=== PATIENT | female | born 1970 | race Caucasian/White ===

== ENCOUNTER 2020-02-17 10:34 | Outpatient (CLI) | payer BC, SELFPAY ==
[2020-02-17 11:21] LABS: Alanine Aminotransferase 40 U/L (4-35); Albumin Level 4.5 g/dL (3.5-5.1); Alkaline Phosphatase 112 U/L (38-126); Aspartate Amino Transferase 36 U/L (14-36); Bilirubin,Total 0.4 mg/dL (0.2-1.3); Blood Urea Nitrogen 19 mg/dL (7-17); Calcium 9.2 mg/dL (8.4-10.2); Carbon Dioxide 26 mmol/L (22-30); Chloride 100 mmol/L (98-107); Cholesterol 225 mg/dL (0-200); Estimated Glomerular Filt Rate 58; Glucose 144 mg/dL (65-105); HDL Direct 37 mg/dL; Potassium 3.9 mmol/L (3.4-5.0); Sodium 138 mmol/L (137-145); Triglycerides 285 mg/dL (<150)
[2020-02-17 12:09] LABS: LDL Cholesterol Direct 130 mg/dL
== END 2020-02-17 10:35 | disposition home or self-care (01) ==
PROVIDERS: PCP Family Medicine; Visit Provider Physician Assistant
DX: R94.5 Abnormal results of liver function studies (principal); R73.01 Impaired fasting glucose; E78.2 Mixed hyperlipidemia
CPT/HCPCS: 36415; 80053; 80061; 83036

== ENCOUNTER 2020-02-22 15:12 | Outpatient (CLI) | payer BC, SELFPAY ==
--- NOTE | ~2020-02-22 | US_ITS ---
EXAMINATION: US venous doppler LE EXAM DATE: 02/22/2020 15:46 INDICATION: Left leg pain and swelling. TECHNIQUE: Multiple grayscale, color flow and Doppler images of the lower extremity deep venous syste ms bilaterally were obtained and reviewed. There is no prior study for comparison. FINDINGS: Right side: The right common femoral, femoral and profunda veins demonstrate normal color flow, respi ratory variation, augmentation and compressibility. Compressibility, color flow confirmed within the right popliteal, posterior tibial, peroneal, and greater saphenous veins. Left side: The left common femoral, femoral and profunda veins demonstrate normal color flow, respira tory variation, augmentation and compressibility. Compressibility, color flow confirmed within the l eft popliteal, posterior tibial, peroneal, and greater saphenous veins. IMPRESSION: 1. No lower extremity deep venous thrombosis bilaterally. Reviewed, dictated and finalized at location A.
== END 2020-02-22 15:13 | disposition home or self-care (01) ==
PROVIDERS: PCP Family Medicine; Visit Provider Physician Assistant
DX: M79.662 Pain in left lower leg (principal); M79.89 Other specified soft tissue disorders
CPT/HCPCS: 93970

== ENCOUNTER 2020-04-08 19:18 | Emergency (ER) | payer OTHER, BC, SELFPAY ==
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
[2020-04-08 19:25] VITALS: BP 137/78; PULSE 82; RESP 18; TEMP 35.9; O2SAT 100
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
[2020-04-08] MEDS: IBUPROFEN 600 MG TABLET PO (21:54)
[2020-04-08 21:56] VITALS: BP 140/70; PULSE 75; RESP 18; O2SAT 98
== END 2020-04-08 21:57 | disposition home or self-care (01) ==
PROVIDERS: Emergency Provider Emergency Medicine; PCP Family Medicine
DX: S16.1XXA Strain of muscle, fascia and tendon at neck level, initial encounter (principal); R51 Headache; G89.29 Other chronic pain; M54.5 Low back pain; M47.812 Spondylosis without myelopathy or radiculopathy, cervical region; M47.816 Spondylosis without myelopathy or radiculopathy, lumbar region; M47.814 Spondylosis without myelopathy or radiculopathy, thoracic region; V49.40XA Driver injured in collision with unspecified motor vehicles in traffic accident, initial encounter
CPT/HCPCS: 70450; 72072; 72100; 72125; 99284; A9270; L0140

== ENCOUNTER 2020-12-06 15:01 | Outpatient (CLI) | payer SELFPAY ==
--- NOTE | ~2020-12-06 | MM_ITS ---
EXAMINATION: MM screening [facility] BI w daphne HISTORY: Screening mammogram TECHNIQUE: Craniocaudal and mediolateral oblique 3-D tomosynthesis images were obtained and synthetic 2-D images were generated. CAD analysis was submitted and interpreted. COMPARISON: 09/02/2019, 06/27/2018, 04/10/2010 BREAST PARENCHYMAL COMPOSITION: The breasts are almost entirely fatty. FINDINGS: There is no evidence of suspicious mass, calcification, or architectural distortion to sugg est malignancy in either breast. There has been no suspicious interval change. IMPRESSION: 1. No mammographic evidence of malignancy. 2. Recommend routine screening mammography in one year. BI-RADS Category 1: Negative Reviewed, dictated and finalized at location A. OR [employer]
== END 2020-12-06 15:02 | disposition home or self-care (01) ==
LOC: ANHIMG 15:04
PROVIDERS: PCP Family Medicine; Visit Provider Family Medicine
DX: Z12.31 Encounter for screening mammogram for malignant neoplasm of breast (principal)
CPT/HCPCS: 77063; 77067

== ENCOUNTER 2021-03-23 11:04 | Outpatient (CLI) | payer BC, SELFPAY ==
--- NOTE | ~2021-03-23 | MMUS_ITS ---
EXAMINATION: MM diagnostic [facility] LT w daphne, US breast LT limited HISTORY: At 3:00 area TECHNIQUE: ML, MLO and cc full field and spot MLO and ML 3-D tomosynthesis images of the left breast were performed and synthetic 2-D images were generated. Lateral craniocaudal view. CAD analysis was s ubmitted and interpreted. High resolution limited left breast ultrasound was performed. COMPARISON: 12/06/2020, 09/02/2019, 06/27/2018 bilateral digital screening mammogram examinations BREAST PARENCHYMAL COMPOSITION: The breasts are almost entirely fatty. FINDINGS: MAMMOGRAPHIC FINDINGS: No suspicious mass or architectural distortion, malignant calcification, skin thickening or retractio n is detected. ULTRASOUND: There is no evidence of focal abnormal solid or cystic lesion or suspicious shadowing. IMPRESSION: 1. No mammographic evidence of malignancy 2. Routine mammographic screening is recommended. BI-RADS Category 1: Negative Reviewed, dictated and finalized at location A. IMPRESSION: 1. No mammographic evidence of malignancy 2. Routine mammographic screening is recommended. BI-RADS Category 1: Negative
== END 2021-03-23 11:05 | disposition home or self-care (01) ==
LOC: ANHIMG 11:05
PROVIDERS: PCP Family Medicine; Visit Provider Obstetrics & Gynecology
DX: R92.8 Other abnormal and inconclusive findings on diagnostic imaging of breast (principal)
CPT/HCPCS: 76642; 77061; 77065; G0279

== ENCOUNTER 2021-04-09 12:52 | Outpatient (CLI) | payer BC, SELFPAY ==
--- NOTE | ~2021-04-09 | DEXA_ITS ---
Bone Density Report Name: Laisha Marquez Age: 50 Sex: Female Ethnicity: White Date of : 1970 Indication: postmenopausal; hysterectomy; Referring Provider: LILIA CLAIRE Study: Bone densitometry was performed. Exam Date: April 09, 2021 Accession number: [id number] Bone Density: Region BMD T-score Z-score Classification AP Spine (L1-L4) 1.001 -0.4 0.5 Normal Femoral Neck (Left) 0.762 -0.8 0.1 Normal Total Hip (Left) 0.815 -1.0 -0.5 Normal Total Hip Bilateral Avg 0.825 -0.9 -0.4 Normal Femoral Neck (Right) 0.785 -0.6 0.3 Normal Total Hip (Right) 0.835 -0.9 -0.3 Normal World Health Organization criteria for BMD impression classify patients as: Normal (T-score at or above -1.0), Osteopenia (T-score between -1.0 and -2.5), or Osteoporosis (T-score at or below -2.5). 10-year Fracture Risk: FRAX not reported because: All T-scores for Spine Total, Hip Total, Femoral Neck at or above -1.0 Clinical Information Provided by Patient: Has used the following medications: HRT (i.e. estrogen/hormone therapy) Has the following medical conditions: Hysterectomy Patient maximum height was 64.5 Menopause Age: 34 No regular weight bearing exercise Drinks caffeinated beverages Onset of menses at age 10 Number of children 2 Impression: The patient has normal bone mass. Discussion: BONE DENSITY IS ABOVE THE MINIMUM DESIRABLE LEVEL AT ALL SKELETAL SITES TESTED. This patient?s bone mineral density is above the minimum desirable level (T-score -1.0 or better) at all sites measured. The patient should follow a healthful lifestyle (good nutrition with adequate calcium and vitamin D, and appropriate weight-bearing exercise). Follow-Up: Consider repeating this study in 5 years or sooner if there is some new clinical indication. Reported by: [facility] on 04/09/2021 3:17:00 PM. Reviewed, dictated and finalized at location AAle SCHAFFER
== END 2021-04-09 12:53 | disposition home or self-care (01) ==
LOC: ANHIMG 12:54
PROVIDERS: PCP Family Medicine; Visit Provider Obstetrics & Gynecology
DX: Z78.0 Asymptomatic menopausal state (principal)
CPT/HCPCS: 77080

== ENCOUNTER 2021-05-02 01:01 | Day surgery (SDC) | payer BC, SELFPAY ==
[2021-04-23 11:39] VITALS: BMI 32.8
[2021-05-02 06:42] VITALS: BP 132/66; PULSE 95; RESP 18; TEMP 36.2; O2SAT 95; BMI 33.2
[2021-05-02] MEDS: LACTATED RINGERS 1,000 ML 150 ML IV CONT (07:00)
--- NOTE | 2021-05-02 07:01 | WPDGICN ---
Assessment and Plan Assessment and plan (1) Gastroesophageal reflux disease: Code(s): K21.9 - Gastro-esophageal reflux disease without esophagitis Status: Acute Assessment and Plan: Patient has a history of chronic GE reflux disease a history of erosive esophagitis on previous endoscopic exam. Because of recurrent pain and discomfort follow-up EGD is planned today. Anticipate long-term use proton pump inhibitor. Strict anti-reflux measures are encourage. Further recommendations will be given after endoscopy. (2) Encounter for screening colonoscopy: Code(s): Z12.11 - Encounter for screening for malignant neoplasm of colon Status: Acute Assessment and Plan: Patient presents for screening colonoscopy. She appears to be at average risk for colon polyps. Further recommendations will be given after endoscopy. GI Consult Note Consult date/time: 05/02/21 07:01 HPI: Laisha Marquez is a 50 year old female Presents for evaluation of GE reflux disease and also for neoplasia screening. Patient states that her current weight appetite bowel movements are normal. She denies abdominal pain. As she is over 50 she desires neoplasia screening. There is no family history of colon cancer. Patient also has a longstanding history of acid reflux disease. She has a history of erosive esophagitis in the past. She currently denies any bleeding or dysphagia. She has had significant heartburn and pain. In the past apparently prescribed proton pump inhibitors these have been did discontinued. Upon being seen in the office within the last 2 months she restarted omeprazole 40 mg p.o. b.i.d. with good response. She is no longer has epigastric or substernal discomfort. She presents today for follow-up examination. Review of Systems Review of Systems: All systems reviewed & are unremarkable except as noted in HPI and below PMFSH Past Medical History Medical History Acid reflux Cervical cancer Depression IBS (irritable bowel syndrome) Miscarriage PTSD (post-traumatic stress disorder) (vaginal after ) Surgical History Surgical History H/O section H/O esophagogastroduodenoscopy H/O hysterectomy with oophorectomy H/O LEEP History of cholecystectomy Family History Family History Father Family history of suicide Mother Family history of primary malignant neoplasm of liver Social History Social History Smoking status: Never smoker Second hand tobacco smoke exposure: No Alcohol intake: former Substance use: former Substance use type: crack/cocaine Other substance usage details: 06/2010 Living arrangements: with family Gender identity (if verbalized by the patient): Female Spiritual care concerns: No Meds Home Medications and Allergies Home Medications Medication Instructions Recorded Confirmed Type bupropion HCl 150 mg tablet,12 hr 150 mg PO DAILY 01/09/21 04/23/21 History sustained-release omeprazole 40 mg capsule,delayed 40 mg PO BID #180 cap 02/28/21 04/23/21 Rx release estradiol 1 mg tablet 1 mg PO DAILY #90 tablet 03/20/21 04/23/21 Rx doxepin 10 mg PO DAILY 04/23/21 04/23/21 History Allergies Allergy/AdvReac Type Severity Reaction Status Date / Time aspirin Allergy Severe Swelling Verified 05/02/21 06:41 of Lip/Tongue/Throat morphine Allergy Severe Dyspnea / Verified 05/02/21 06:41 SOB Penicillins Allergy Severe Difficulty Verified 05/02/21 06:41 Breathing Sulfa (Sulfonamide Allergy Severe Swelling Verified 05/02/21 06:41 Antibiotics) tramadol Allergy Severe Itching Verified 05/02/21 06:41 Bumble Bee Allergy Severe Anaphylactic Uncoded 05/02/21 06:41 Shock
[2021-05-02 07:13] LABS: Glucose Point of Care 106 mg/dl (65-105)
--- NOTE | 2021-05-02 07:51 | WPDANESEPPF ---
Anes - Initial Pre Proc Eval Procedure: Operation Date: 05/02/21 08:00 Proposed Procedures p Esophagogastroduodenoscopy & Screening Colonoscopy - Antoni Colon MD Date/Time: 05/02/21 07:51 Surgeon: Antoni Colon MD Pre Op Diagnosis: GERD, Neoplasm screening Patient Data Age: 50 Gender: F Height: 1.65 m Weight: 90.5 kg Last Vital Signs Temp 97.2 F L 05/02/21 06:42 Pulse 95 05/02/21 06:42 Resp 18 05/02/21 06:42 BP 132/66 05/02/21 06:42 Pulse Ox 95 05/02/21 06:42 Allergies Allergy/AdvReac Type Severity Reaction Status Date / Time aspirin Allergy Severe Swelling Verified 05/02/21 06:41 of Lip/Tongue/Throat morphine Allergy Severe Dyspnea / Verified 05/02/21 06:41 SOB Penicillins Allergy Severe Difficulty Verified 05/02/21 06:41 Breathing Sulfa (Sulfonamide Allergy Severe Swelling Verified 05/02/21 06:41 Antibiotics) tramadol Allergy Severe Itching Verified 05/02/21 06:41 Bumble Bee Allergy Severe Anaphylactic Uncoded 05/02/21 06:41 Shock Home Medications Medication Instructions Recorded Confirmed Type bupropion HCl 150 mg tablet,12 hr 150 mg PO DAILY 01/09/21 04/23/21 History sustained-release omeprazole 40 mg capsule,delayed 40 mg PO BID #180 cap 02/28/21 04/23/21 Rx release estradiol 1 mg tablet 1 mg PO DAILY #90 tablet 03/20/21 04/23/21 Rx doxepin 10 mg PO DAILY 04/23/21 04/23/21 History Laboratory Tests 05/02/21 06:57 POC Capillary Glucose 106 mg/dl H mg/dl (65-105) Patient hx anesthesia problems: none Family hx anesthesia problems: none PMFSH Past Medical History Medical History Acid reflux Cervical cancer Depression IBS (irritable bowel syndrome) Miscarriage PTSD (post-traumatic stress disorder) (vaginal after ) Surgical History Surgical History H/O section H/O esophagogastroduodenoscopy H/O hysterectomy with oophorectomy H/O LEEP History of cholecystectomy Family History Family History Father Family history of suicide Mother Family history of primary malignant neoplasm of liver Social History Social History Smoking status: Never smoker Second hand tobacco smoke exposure: No Alcohol intake: former Substance use: former Substance use type: crack/cocaine Other substance usage details: 06/2010 Living arrangements: with family Gender identity (if verbalized by the patient): Female Spiritual care concerns: No Anes - Eval Final PreProcedure Day of Procedure 05/02/21 07:51 Patient weight: obese Heart: regular rate and rhythm Lungs: clear to auscultation Airway: Mallampati scale class II Neurological: alert and oriented Last oral intake: >/= 8 hours ASA classification: III Emergent: no Anesthetic plan: proceed Anesthesia type and monitoring: general GIVS and standard monitoring Informed Consent: The patient's anesthetic plan and its attendant risks and benefits were discussed with the patient/family/POA. Questions were solicited and answers provided to the satisfaction of the patient/family/POA.
[2021-05-02] MEDS: BENZOCAINE (*SP) 60 ML SPRAY CAN (HURRICAINE) 1 SPRAY MUCOUS MEM (07:59)
[2021-05-02 08:23] VITALS: BP 105/63; PULSE 77; RESP 15; O2SAT 99
[2021-05-02 08:33] VITALS: BP 110/64; PULSE 72; RESP 16; O2SAT 98
[2021-05-02 08:43] VITALS: BP 112/64; PULSE 74; RESP 18; O2SAT 97
== END 2021-05-02 09:04 | disposition home or self-care (01) ==
PROVIDERS: PCP Family Medicine; Visit Provider Internal Medicine Gastroenterology
PROC: 0DJ08ZZ Inspection of Upper Intestinal Tract, Via Natural or Artificial Opening Endoscopic (ICD-10-PCS; CPT 43235; principal; 2021-05-02 08:00)
DX: Z12.11 Encounter for screening for malignant neoplasm of colon (principal); K64.8 Other hemorrhoids; K57.32 Diverticulitis of large intestine without perforation or abscess without bleeding; K21.00 Gastro-esophageal reflux disease with esophagitis, without bleeding; K31.84 Gastroparesis; K58.9 Irritable bowel syndrome, unspecified; F43.10 Post-traumatic stress disorder, unspecified; Z85.41 Personal history of malignant neoplasm of cervix uteri; E66.9 Obesity, unspecified; Z68.33 Body mass index [BMI] 33.0-33.9, adult; Z79.899 Other long term (current) drug therapy
CPT/HCPCS: 45378; 43235; 82948; J2704; J7120

== ENCOUNTER 2021-07-20 15:01 | Outpatient (CLI) | payer BC, SELFPAY ==
[2021-07-20 15:38] LABS: Basophils Percent Auto 0.2 % (0.2-1.2); Eosinophils Absolute Auto 0.1 K/mm3 (0-0.3); Eosinophils Percent Auto 1.4 % (0-4.4); Hematocrit 38.2 % (37.0-47.0); Immature Granulocyte Absolute 0.02 K/mm3 (0.00-0.031); Immature Granulocyte Percent A 0.2 % (0-0.5); Lymphocytes Absolute Auto 3.02 K/mm3 (0.9-3.2); Lymphocytes Percent Auto 34.8 % (18.3-44.2); Mean Corpuscular HGB Conc 31.4 g/dl (32-36); Mean Corpuscular Volume 85.8 fl (80-100); Mean Platelet Volume 9.2 fl (7.4-10.4); Monocytes Absolute Auto 0.5 K/mm3 (0.1-0.6); Monocytes Percent Auto 5.9 % (2.6-8.5); Neutrophils Percent Auto 57.5 % (45.5-73.1); Platelet Count Result 325 k/mm3 (150-375); Red Blood Count 4.45 M/mm3 (4.2-5.4); Red Cell Distribution Width 14.1 % (11.5-14.5); White Blood Count 8.7 K/mm3 (4.5-10.0)
[2021-07-20 15:40] LABS: Add Urine Microscopic? NO; Appearance Urine Clear (Clear); Bilirubin Urine Negative (Negative); Blood Urine Negative (Negative); Color Urine Yellow (Yellow); Glucose Urine UA Negative (Negative); Ketones Urine Negative (Negative); Leukocyte Esterase Ur Negative LEU/UL (NEGATIVE); Nitrate Urine Negative (Negative); Protein Urine Negative (Negative); Specific Grav Ur 1.018 (1.001-1.035); Urobilinogen Urine Negative mg/dL (<2.0)
[2021-07-20 15:50] LABS: Alanine Aminotransferase 23 U/L (4-35); Albumin Level 4.8 g/dL (3.5-5.1); Alkaline Phosphatase 93 U/L (38-126); Amylase 69 U/L (30-110); Anion Gap 12 mmol/L (8-16); Aspartate Amino Transferase 31 U/L (14-36); Bilirubin,Total 0.4 mg/dL (0.2-1.3); Blood Urea Nitrogen 15 mg/dL (7-17); Calcium 9.2 mg/dL (8.4-10.2); Carbon Dioxide 26 mmol/L (22-30); Chloride 102 mmol/L (98-107); Estimated Glomerular Filt Rate > 60; Glucose 86 mg/dL (65-110); Lipase 159 U/L (23-300); Potassium 3.9 mmol/L (3.4-5.0); Sodium 140 mmol/L (137-145)
[2021-07-20 16:40] LABS: Hemoglobin A1C 5.4 % (<5.7)
== END 2021-07-20 15:02 | disposition home or self-care (01) ==
LOC: ANHLAB 15:03
PROVIDERS: PCP Family Medicine; Visit Provider Physician Assistant
DX: E03.9 Hypothyroidism, unspecified (principal); R10.9 Unspecified abdominal pain; R73.01 Impaired fasting glucose; R79.89 Other specified abnormal findings of blood chemistry; N39.3 Stress incontinence (female) (male)
CPT/HCPCS: 36415; 80053; 81003; 82150; 83036; 83690; 84443; 85025; 87086; 87088

== ENCOUNTER 2021-07-27 13:02 | Outpatient (CLI) | payer BC, SELFPAY ==
--- NOTE | ~2021-07-27 | CT_ITS ---
EXAMINATION: CT abdomen pelvis wo con EXAM DATE: 07/27/2021 13:17 INDICATION: Right upper quadrant pain, symptoms one month. History of cervical cancer. TECHNIQUE: Spiral CT of the abdomen and pelvis was performed without contrast. Axial, coronal and s agittal images of the abdomen and pelvis were reviewed. The dose-length product (DLP) for this exami nation was 713.24 mGy-cm. The exposure was tailored according to patient size (auto mA exposure cont rol), and iterative reconstruction (ASIR) was used as additional dose reduction technique. Comparison is made to prior examination from 11/16/2017. FINDINGS: There is hepatic steatosis without suspicious focal lesion identified. Spleen, adrenal glan ds, pancreas are unremarkable. There are cholecystectomy clips. There is no nephrolithiasis or hydr onephrosis. The uterus is not identified and has likely been surgically resected. The bladder is u nremarkable. There is no retroperitoneal or pelvic lymphadenopathy. There is mild scattered arteri osclerotic disease. The appendix is normal. The stomach and small bowel are unremarkable. There is expected amount of c olonic stool. No free intraperitoneal gas. The heart is normal in size. There are no pericardial or pleural effusions. The lung bases are unremarkable. There are no osteoblastic or osteolytic les ions identified. IMPRESSION: 1. No acute intra-abdominal findings. 2. Hepatic steatosis. 3. Hysterectomy, cholecystectomy Reviewed, dictated and finalized at location A.
== END 2021-07-27 13:03 | disposition home or self-care (01) ==
LOC: ANHIMG 13:04
PROVIDERS: PCP Family Medicine; Visit Provider Physician Assistant
DX: R10.9 Unspecified abdominal pain (principal); K76.0 Fatty (change of) liver, not elsewhere classified; Z90.49 Acquired absence of other specified parts of digestive tract
CPT/HCPCS: 74176

== ENCOUNTER 2021-08-11 11:05 | Emergency (ER) | payer BC, SELFPAY ==
--- NOTE | ~2021-08-11 | CT_ITS ---
EXAMINATION: CTA chest PE protocol DATE: 08/11/2021 12:31 CDT INDICATION: Pleuritic chest pain TECHNIQUE: Computed tomographic angiography (CTA) of the chest was performed with 100 mL Omnipaque-35 0 intravenous contrast. The dose-length product was 401.67 mGy-cm. Maximum intensity projection 3D-re constructions of the aorta and other arteries were constructed by the technologist on a separate work station. COMPARISON: CT dated 09/25/2012. FINDINGS: Study is technically adequate without evidence for pulmonary embolism. No thoracic lymphade nopathy. No evidence for aortic aneurysm or dissection. Heart size normal. No significant pleural or pericardial effusion. There are cholecystectomy clips. Upper abdomen is otherwise unremarkable. Small hiatal hernia. No pneumothorax. No focal airspace consolidation. No endobronchial lesions. No suspic ious pulmonary nodules or masses. Mild thoracic spondylosis. IMPRESSION: 1. No evidence for pulmonary embolism. No acute cardiopulmonary disease. Reviewed, dictated and finalized at location A.
--- NOTE | ~2021-08-11 | XR_ITS ---
EXAMINATION: XR chest 1V portable 08/11/2021 11:30 INDICATION: Pleuritic chest pain PROCEDURE: AP portable chest COMPARISON: Comparison to multiple prior studies sequentially, with oldest reviewed study dated 12/20. FINDINGS: The lungs are clear. The cardiomediastinal silhouette is within normal limits. There are no pleural effusions. There is no pneumothorax suspected. IMPRESSION: 1: NO ACUTE CARDIOPULMONARY DISEASE. Reviewed, dictated and finalized at location A.
--- NOTE | 2021-08-11 11:10 | ECG_ITS ---
Measurements Intervals M[place]oll Rate: 74 P: 32 IL: 146 QRS: -1 QRSD: 110 T: 61 QT: 408 QTc: 455 Interpretive Statements SINUS RHYTHM T WAVE ABNORMALITY IN ANTERIOR LEADS- CONSIDER ISCHEMIA BASELINE ARTIFACT- I, II, III, AVL, AVF, V2, V4 ABNORMAL ECG Electronically Signed On 08-11-2021 17:44:47 CDT by Ronaldo Renee D.O.
[2021-08-11 11:15] VITALS: BP 106/71; PULSE 84; RESP 18; TEMP 36.1; O2SAT 100
[2021-08-11 11:25] LABS: Basophils Percent Auto 0.4 % (0.2-1.2); Eosinophils Absolute Auto 0.1 K/mm3 (0-0.3); Eosinophils Percent Auto 1.7 % (0-4.4); Hematocrit 38.6 % (37.0-47.0); Hemoglobin 12.2 g/dL (12.0-15.0); Immature Granulocyte Absolute 0.03 K/mm3 (0.00-0.031); Immature Granulocyte Percent A 0.4 % (0-0.5); Lymphocytes Absolute Auto 2.77 K/mm3 (0.9-3.2); Lymphocytes Percent Auto 36.5 % (18.3-44.2); Mean Corpuscular HGB Conc 31.6 g/dl (32-36); Mean Corpuscular Hemoglobin 27.5 pg (26-34); Mean Corpuscular Volume 87.1 fl (80-100); Mean Platelet Volume 9.2 fl (7.4-10.4); Monocytes Absolute Auto 0.3 K/mm3 (0.1-0.6); Monocytes Percent Auto 4.1 % (2.6-8.5); Neutrophils Absolute Auto 4.3 K/mm3 (1.3-6.7); Neutrophils Percent Auto 56.9 % (45.5-73.1); Platelet Count Result 319 k/mm3 (150-375); Red Blood Count 4.43 M/mm3 (4.2-5.4); Red Cell Distribution Width 13.9 % (11.5-14.5); White Blood Count 7.6 K/mm3 (4.5-10.0)
[2021-08-11 11:35] LABS: Anion Gap 8 mmol/L (8-16); Blood Urea Nitrogen 12 mg/dL (7-17); Calcium 9.9 mg/dL (8.4-10.2); Carbon Dioxide 29 mmol/L (22-30); Chloride 101 mmol/L (98-107); Estimated CRCL calculation 55 ml/min; Estimated Glomerular Filt Rate > 60; Glucose 153 mg/dL (65-110); Sodium 138 mmol/L (137-145)
[2021-08-11 11:41] LABS: INR 0.9; Prothrombin Time 12.2 Seconds (11.1-14.7)
[2021-08-11 11:42] LABS: Partial Thromboplastin Time 32.2 SECONDS (22.3-36.8)
[2021-08-11 11:47] LABS: Troponin I < 0.012 ng/mL (0.000-0.034)
--- NOTE | 2021-08-11 12:12 | ED.CHESTPAIN ---
HPI - Chest Pain General Chief Complaint: Chest Pain Stated Complaint: cp Time Seen by Provider: 08/11/21 11:22 Source: patient History of Present Illness HPI narrative: Patient presents with chest pain. Reports her symptoms been present since last night have been constant. Her her pain is described as a crushing sensation in the middle of her chest radiating to her back constant worse with deep inspiration no change with exertion. She denies cough fevers nausea vomiting or diaphoresis. She does report shortness of breath described as difficulty with taking deep breaths. She denies any significant family history of cardiac disease, personal history of thrombotic events she denies recent hospitalizations or surgeries. Related Data Home Medications Medication Instructions Recorded Confirmed bupropion HCl 150 mg tablet,12 hr 150 mg PO DAILY 01/09/21 07/20/21 sustained-release doxepin 10 mg PO DAILY 04/23/21 07/20/21 Allergies Allergy/AdvReac Type Severity Reaction Status Date / Time aspirin Allergy Severe Swelling Verified 07/20/21 14:34 of Lip/Tongue/Throat morphine Allergy Severe Dyspnea / Verified 07/20/21 14:34 SOB Penicillins Allergy Severe Difficulty Verified 07/20/21 14:34 Breathing Sulfa (Sulfonamide Allergy Severe Swelling Verified 07/20/21 14:34 Antibiotics) tramadol Allergy Severe Itching Verified 07/20/21 14:34 Bumble Bee Allergy Severe Anaphylactic Uncoded 07/20/21 14:34 Shock Review of Systems Review of Systems: CONSTITUTIONAL: Denies fever, chills, or sweats. EYES: Denies visual changes, redness, or discharge. ENT: Denies rhinorrhea, congestion, sore throat, or otalgia. CARDIOVASCULAR: Denies palpitations, or edema. RESPIRATORY: Denies cough. GASTROINTESTINAL: Denies abdominal pain, nausea, vomiting, or diarrhea. GENITOURINARY: Denies dysuria or hematuria. SKIN: Denies rash or itching. MUSCULOSKELETAL: Denies back pain, joint pain, or myalgia. NEUROLOGIC: Denies headache, numbness, dizziness, or weakness. PSYCHIATRIC: Denies anxiety or depression. All systems reviewed & are unremarkable except as noted in HPI and below PMFSH Past Medical History Medical History Acid reflux Cervical cancer Depression IBS (irritable bowel syndrome) Miscarriage PTSD (post-traumatic stress disorder) (vaginal after ) Surgical History Surgical History H/O section H/O esophagogastroduodenoscopy H/O hysterectomy with oophorectomy H/O LEEP History of cholecystectomy Family History Family History Father Family history of suicide Mother Family history of primary malignant neoplasm of liver Social History Social History Social History: Smoking status: Never smoker Second hand tobacco smoke exposure: No Alcohol intake: former Substance use: former Substance use type: crack/cocaine Other substance usage details: 06/2010 Gender identity (if verbalized by the patient): Female Sexual Orientation (if Verbalized by the Patient): Straight or Heterosexual Spiritual care concerns: No Exam Narrative: GENERAL: Well-appearing, well-nourished, and in no acute distress. HEAD: Normocephalic, atraumatic. EYES: PERRLA and EOMI. ENT: Nares clear, no rhinorrhea or epistaxis. Mucous membranes moist. NECK: Supple. No masses. No JVD CHEST: Clear to auscultation. No respiratory distress. No wheezes rales or rhonchi tenderness palpation on the sternum HEART: Regular rate and rhythm. No murmur heard. Normal peripheral pulses. ABDOMEN: Soft, nontender, nondistended, normal active bowel sounds. EXTREMITIES: Normal range of motion. No edema. SKIN: Warm, dry, no rash. NEURO: No focal deficits. Alert and oriented x3. PSYCH:
[2021-08-11 12:13] LABS: Alanine Aminotransferase 23 U/L (4-35); Albumin Level 4.9 g/dL (3.5-5.1); Alkaline Phosphatase 84 U/L (38-126); Aspartate Amino Transferase 27 U/L (14-36); Bilirubin,Total 0.5 mg/dL (0.2-1.3)
[2021-08-11] MEDS: LIDOCAINE HCL 2% VISC SOLN 15 ML UDC 20 ML PO (13:26)
[2021-08-11] MEDS: MAG HYDROX/AL HYDROX/SIMETH 30 ML UDC PO (13:28)
[2021-08-11 13:31] VITALS: BP 110/77; PULSE 75; RESP 18; O2SAT 100
== END 2021-08-11 13:31 | disposition home or self-care (01) ==
PROVIDERS: Emergency Provider Emergency Medicine; PCP Family Medicine
DX: R07.89 Other chest pain (principal); K21.9 Gastro-esophageal reflux disease without esophagitis; K58.9 Irritable bowel syndrome, unspecified; F32.A Depression, unspecified; F43.10 Post-traumatic stress disorder, unspecified; Z85.41 Personal history of malignant neoplasm of cervix uteri; R94.31 Abnormal electrocardiogram [ECG] [EKG]
CPT/HCPCS: 36415; 71045; 71275; 80048; 80076; 84484; 85025; 85610; 85730; 93005; 99284; A9270; Q9967

== ENCOUNTER 2021-12-24 15:57 | Outpatient (CLI) | payer BC, SELFPAY ==
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
== END 2021-12-24 15:58 | disposition home or self-care (01) ==
LOC: ANHIMG 16:02
PROVIDERS: PCP Family Medicine; Visit Provider Nurse Practitioner Family
DX: M16.11 Unilateral primary osteoarthritis, right hip (principal)
CPT/HCPCS: 73502

== ENCOUNTER 2022-03-06 13:52 | Outpatient (CLI) | payer BC, SELFPAY ==
--- NOTE | ~2022-03-06 | MR_ITS ---
EXAMINATION: MR lumbar spine wo con DATE: 03/06/2022 14:48 INDICATION: Lumbar radiculopathy TECHNIQUE: Magnetic resonance imaging (MRI) of the lumbar spine was performed without intravenous con trast. Sequences included sagittal T2-weighted FSE, sagittal T2-weighted FS FSE, sagittal T1-weighted FSE, and axial T2-weighted FSE. COMPARISON: Lumbar spine radiographs dated 04/08/2020 FINDINGS: Alignment is normal. Vertebral body heights are normal. Normal marrow signal. Moderate disc height l oss at T10-T11, T11-T12 and L5-S1. Disc desiccation with mild disc height loss at L1-L2 and minimal d isc height loss at L3-L4 and L4-L5. Annular fissures at L4-L5 and L5-S1. The conus medullaris termina yuri at L1-L2. There is normal signal in the caudal spinal cord. Paravertebral soft tissues are unrema rkable. The following disc levels are specifically discussed: T12-L1: The disc does not extend beyond the endplate margin. There is mild right and mild to moderate left facet joint osteoarthritis. There is no neural foraminal stenosis. There is no central canal st enosis. L1-L2: Disc is bulging. There is mild bilateral facet joint osteoarthritis. There is minimal bilatera l neural foraminal stenosis. There is minimal central canal stenosis. L2-L3: The disc does not extend beyond the endplate margin. There is mild bilateral facet joint osteo arthritis. There is no neural foraminal stenosis. There is no central canal stenosis. L3-L4: Disc is bulging. There is mild to moderate bilateral facet joint osteoarthritis. There is mild bilateral neural foraminal stenosis. There is minimal central canal stenosis. L4-L5: Disc is bulging with annular fissure. There is moderate left and mild to moderate right facet joint osteoarthritis. There is mild to moderate bilateral neural foraminal stenosis. There is minimal central canal stenosis. L5-S1: Minimal left foraminal zone disc protrusion and annular fissure with small right foraminal zon e disc extrusion. There is mild to moderate bilateral facet joint osteoarthritis. There is mild left and mild to moderate right neural foraminal stenosis. There is no central canal stenosis. IMPRESSION: 1. Mild to moderate spondylosis in the lumbar and lower thoracic spine. Reviewed, dictated and finalized at location A.
--- NOTE | ~2022-03-06 | MR_ITS ---
EXAMINATION: MR cervical spine wo con DATE: 03/06/2022 14:39 INDICATION: Cervical radiculopathy. Chronic neck pain. TECHNIQUE: Magnetic resonance imaging (MRI) of the cervical spine was performed without intravenous c ontrast. Sequences included sagittal T2-weighted FSE, sagittal T2-weighted FS FSE, sagittal T1-weight ed FSE, axial MERGE, and axial T2-weighted FSE. COMPARISON: None FINDINGS: Bone alignment is normal. Vertebral body heights are normal. There is mildly decreased disc height at C5-C6 and C6-C7. The spinal cord signal intensity is normal. The following disc levels are specifically discussed: C2-C3: The disc does not extend beyond the endplate margin. There is no uncovertebral joint osteoarth ritis. There is severe right and moderate left facet joint osteoarthritis. There is mild bilateral ne ural foraminal stenosis. There is no central canal stenosis. C3-C4: There is a right central extrusion. There is no uncovertebral joint osteoarthritis. There is s evere bilateral facet joint osteoarthritis. There is mild bilateral neural foraminal stenosis. There is mild central canal stenosis with ventral indentation of the spinal cord. C4-C5: The disc is bulging. There is no uncovertebral joint osteoarthritis. There is severe right and moderate left facet joint osteoarthritis. There is no neural foraminal stenosis. There is mild centr al canal stenosis. C5-C6: The disc is bulging. There is severe bilateral uncovertebral joint osteoarthritis. There is se margarita right and moderate left facet joint osteoarthritis. There is severe right and mild left neural f oraminal stenosis. There is mild central canal stenosis. C6-C7: The disc is bulging. There is severe bilateral uncovertebral joint osteoarthritis. There is mi ld right and moderate left facet joint osteoarthritis. There is moderate right and mild left neural f oraminal stenosis. There is mild central canal stenosis with ventral indentation of the spinal cord. C7-T1: The disc does not extend beyond the endplate margin. There is no uncovertebral joint osteoarth ritis. There is moderate right and mild left facet joint osteoarthritis. There is mild bilateral neur al foraminal stenosis. There is no central canal stenosis. IMPRESSION: 1. Moderate cervical spondylosis. Reviewed, dictated and finalized at location A.
== END 2022-03-06 13:53 | disposition home or self-care (01) ==
PROVIDERS: PCP Family Medicine; Visit Provider Nurse Practitioner Family
DX: M47.23 Other spondylosis with radiculopathy, cervicothoracic region (principal); M48.03 Spinal stenosis, cervicothoracic region; M47.25 Other spondylosis with radiculopathy, thoracolumbar region; M48.05 Spinal stenosis, thoracolumbar region
CPT/HCPCS: 72141; 72148

== ENCOUNTER 2022-08-06 08:21 | Outpatient (CLI) | payer BC, SELFPAY ==
[2022-08-06 09:04] LABS: Add Urine Microscopic? YES; Appearance Urine Clear (Clear); Bacteria Urine Trace /hpf; Bilirubin Urine Negative (Negative); Blood Urine 1+ (Negative); Color Urine Yellow (Yellow); Glucose Urine UA Negative (Negative); Ketones Urine Negative (Negative); Leukocyte Esterase Ur Negative LEU/UL (NEGATIVE); Mucus Urine Rare /lpf; Nitrate Urine Negative (Negative); Protein Urine Negative (Negative); RBC Urine 0-2 /hpf (0-2); Specific Grav Ur 1.019 (1.001-1.035); Squamous Epithelial Cell Urine Occasional /hpf (Few); Urobilinogen Urine Negative mg/dL (<2.0); WBC Urine 0-3 /hpf (0-3)
[2022-08-06 09:29] LABS: Basophils Absolute Auto 0.1 K/mm3 (0.0-0.1); Basophils Percent Auto 0.7 % (0.2-1.2); Eosinophils Absolute Auto 0.2 K/mm3 (0-0.3); Eosinophils Percent Auto 2.4 % (0-4.4); Hematocrit 38.4 % (37.0-47.0); Immature Granulocyte Absolute 0.03 K/mm3 (0.00-0.031); Immature Granulocyte Percent A 0.4 % (0-0.5); Lymphocytes Absolute Auto 1.97 K/mm3 (0.9-3.2); Lymphocytes Percent Auto 27.8 % (18.3-44.2); Mean Corpuscular HGB Conc 31.3 g/dl (32-36); Mean Corpuscular Hemoglobin 27.1 pg (26-34); Mean Corpuscular Volume 86.9 fl (80-100); Mean Platelet Volume 9.7 fl (7.4-10.4); Monocytes Absolute Auto 0.5 K/mm3 (0.1-0.6); Monocytes Percent Auto 6.9 % (2.6-8.5); Neutrophils Absolute Auto 4.4 K/mm3 (1.3-6.7); Neutrophils Percent Auto 61.8 % (45.5-73.1); Platelet Count Result 337 k/mm3 (150-375); Red Blood Count 4.42 M/mm3 (4.2-5.4); Red Cell Distribution Width 13.9 % (11.5-14.5); White Blood Count 7.1 K/mm3 (4.5-10.0)
[2022-08-06 09:50] LABS: Alanine Aminotransferase 35 U/L (6-35); Albumin Level 4.8 g/dL (3.5-5.1); Alkaline Phosphatase 85 U/L (38-126); Anion Gap 11 mmol/L (8-16); Aspartate Amino Transferase 34 U/L (14-36); Bilirubin,Total 0.4 mg/dL (0.2-1.3); Blood Urea Nitrogen 20 mg/dL (7-17); Calcium 9.2 mg/dL (8.4-10.2); Carbon Dioxide 29 mmol/L (22-30); Chloride 99 mmol/L (98-107); Cholesterol 237 mg/dL (0-200); Estimated Glomerular Filt Rate > 60; Glucose 111 mg/dL (65-110); HDL Direct 45 mg/dL; Potassium 3.9 mmol/L (3.4-5.0); Sodium 139 mmol/L (137-145); Triglycerides 156 mg/dL (<150)
[2022-08-06 10:01] LABS: LDL Cholesterol Direct 148 mg/dL
[2022-08-06 11:16] LABS: Hemoglobin A1C 5.9 % (<5.7)
== END 2022-08-06 08:22 | disposition home or self-care (01) ==
LOC: ANHLAB 08:25
PROVIDERS: PCP Family Medicine; Visit Provider Nurse Practitioner Family
DX: R79.89 Other specified abnormal findings of blood chemistry (principal); E03.9 Hypothyroidism, unspecified; Z00.00 Encounter for general adult medical examination without abnormal findings; R73.01 Impaired fasting glucose
CPT/HCPCS: 36415; 80053; 80061; 81001; 83036; 84443; 85025

== ENCOUNTER 2022-09-09 12:51 | Emergency (ER) | payer BC, SELFPAY ==
[2022-09-09 13:02] VITALS: BP 143/79; PULSE 87; RESP 20; TEMP 36.2; O2SAT 98
--- NOTE | 2022-09-09 13:41 | PC.NURSE ---
Patient reports taking Toradol in the past and has not had a reaction to the medication. EDP Vivar aware.
--- NOTE | 2022-09-09 13:41 | ED.BACK ---
HPI - Back Pain/Injury General Chief Complaint: Back Pain/Injury Stated Complaint: hip and back pain Time Seen by Provider: 09/09/22 13:31 History of Present Illness HPI Narrative: Pt presents with low back pain radiating to right thigh and down to knee. Pt denies problems with bladder or bowels. Pt says has some numbness in her feet and hands intermittently. Pt has a neurology appointment but has not been able to get x rays done due to work schedule. Pt came here from pain management. Related Data Home Medications Medication Instructions Recorded Confirmed doxepin 10 mg capsule 20 mg PO DAILY 05/16/22 09/09/22 bupropion HCl 150 mg tablet,12 hr 300 mg PO DAILY 08/13/22 09/09/22 sustained-release (Wellbutrin SR) Allergies Allergy/AdvReac Type Severity Reaction Status Date / Time aspirin Allergy Severe Swelling Verified 09/09/22 09:06 of Lip/Tongue/Throat hornet venom Allergy Severe Anaphylactic Verified 09/09/22 09:06 Shock morphine Allergy Severe Dyspnea / Verified 09/09/22 09:06 SOB Penicillins Allergy Severe Difficulty Verified 09/09/22 09:06 Breathing Sulfa (Sulfonamide Allergy Severe Swelling Verified 09/09/22 09:06 Antibiotics) tramadol Allergy Severe Itching Verified 09/09/22 09:06 venom-wasp Allergy Severe Anaphylactic Verified 09/09/22 09:06 Shock Bumble Bee Allergy Severe Anaphylactic Uncoded 09/09/22 09:06 Shock antibodticies AdvReac Severe Difficulty Uncoded 09/09/22 09:06 Breathing Review of Systems Review of Systems: All systems reviewed & are unremarkable except as noted in HPI and below PMFSH Past Medical History Medical History Abdominal pain Acid reflux Alcoholism Anxiety Arthritis Cervical cancer Constipation Depression Diarrhea Dizziness Excessive thirst History of drug dependence History of postoperative complication of surgical procedure IBS (irritable bowel syndrome) Light headedness Miscarriage Nausea PTSD (post-traumatic stress disorder) Stomach ulcer (vaginal after ) Vision changes Vomiting Surgical History Surgical History H/O section H/O esophagogastroduodenoscopy H/O hysterectomy with oophorectomy H/O LEEP History of cholecystectomy Family History Family History Father Family history of suicide Mother Family history of primary malignant neoplasm of liver Other Alzheimer disease Arthritis Breast cancer Cerebrovascular accident Depression Diabetes mellitus Heart attack Heart disease History of cancer Hypertension Social History Social History (Updated 09/09/22 @ 09:10 by Carley Witt) Social History: Smoking status: Never smoker Second hand tobacco smoke exposure: No Alcohol intake: former Substance use: former Substance use type: marijuana and crack/cocaine Other substance usage details: 06/2010 Gender identity (if verbalized by the patient): Female Sexual Orientation (if Verbalized by the Patient): Straight or Heterosexual Spiritual care concerns: No Exam Const: General: healthy appearing Nutritional Appearance: well nourished Orientation/consciousness: patient oriented x3 Limitations: no limitations Neck: Neck: normal visual inspection Resp: Effort & Inspection: normal respiratory effort Auscultation: clear to auscultation bilaterally Cardio: Rate: regular rate Rhythm: regular rhythm GI: Auscultation: normal bowel sounds Back/Spine/Pelvis: Other: tender left low back with some spasm in left paraspinous muscles and into buttock Skin: General skin exam: normal color Rashes: no rashes Wounds: no wounds Neuro: General: patient oriented x3, moves all extremities and no focal motor deficits Cranial nerves: Yes Nystagmus not present Speech: normal speech Othe
--- NOTE | 2022-09-09 13:46 | PHAR ---
VERIFIED USE OF TORADOL WITH ASA ALLERGY WITH DR POON. SHE HAS TAKEN TORADOL BEFORE WITH NO ISSUES.
--- NOTE | 2022-09-09 13:53 | PC.NURSE ---
Per EDP Vivar, okay to administer IM Toradol to patient.
[2022-09-09] MEDS: KETOROLAC 30 MG/ML VIAL (*BKC) IM (13:55)
[2022-09-09 14:25] VITALS: TEMP 36.2
[2022-09-09] MEDS: diphenhydrAMINE HCl CAP 25 MG CAPSULE 50 MG PO (14:33)
--- NOTE | 2022-09-09 14:37 | PC.NURSE ---
Patient states she is starting to itch. EDP Vivar notified. PO Benadryl given. No redness or difficulty breathing noted.
[2022-09-09 15:11] VITALS: BP 123/64; PULSE 67; TEMP 36.1; O2SAT 98
== END 2022-09-09 15:34 | disposition home or self-care (01) ==
PROVIDERS: Emergency Provider Emergency Medicine; PCP Family Medicine
DX: M19.90 Unspecified osteoarthritis, unspecified site (principal); K21.9 Gastro-esophageal reflux disease without esophagitis; K58.9 Irritable bowel syndrome, unspecified; F41.9 Anxiety disorder, unspecified; F32.A Depression, unspecified; F43.10 Post-traumatic stress disorder, unspecified; Z90.710 Acquired absence of both cervix and uterus; Z85.41 Personal history of malignant neoplasm of cervix uteri
CPT/HCPCS: 96372; 99283; A9270; J1885

== ENCOUNTER 2022-10-01 14:22 | Outpatient (CLI) | payer BC, SELFPAY ==
--- NOTE | ~2022-10-01 | US_ITS ---
EXAMINATION: US carotid duplex BI DATE: 10/01/2022 15:10 INDICATION: Dizziness and giddiness TECHNIQUE: Grayscale, color Doppler, and pulsed Doppler images of the cervical carotid arteries were obtained. The degree of vessel stenosis is placed in one of the following categories: normal, <50%, 5 0-69%, >=70% but less than near-occlusion, near-occlusion, or total occlusion. Note that percent sten osis relative to normal distal artery lumen diameter is indirectly measured from velocity measurement s as described by Mario, et al. Radiology 2003; 229:340-346. Notes: Normal: Peak systolic velocity <125 centimeters/sec and no plaque <50%. Peak systolic velocity <125 ( EDV <40; ICA/CCA PSV ratio <2.0; used these factors only a tandem lesions or low cardiac output or co ntralateral disease) 50-69 %: PSV 125-230 (EDV 40-100; ratio 2-4) >= 70% but less than near occlusion: PSV greater than 230 (EDV > 100; ratio> 4.0) Near Occlusion: PSV that is variable; markedly narrowed lumen Occlusion: Absent flow on color/spectral Doppler and no lumen on bahena scale. COMPARISON: None. FINDINGS: RIGHT: The right common carotid artery (CCA) peak systolic velocity (PSV) is 94 cm/s. The right internal car otid artery (ICA) PSV is 63 cm/s. The right ICA end-diastolic velocity (EDV) is 28 cm/s. The right IC A/CCA PSV ratio is 0.7. The external carotid artery (ECA) PSV is 79 cm/s. There is antegrade flow in the right vertebral artery. LEFT: The left CCA PSV is 97 cm/s. The left ICA PSV is 83 cm/s. The left ICA EDV is 29 cm/s. The left ICA/C CA PSV ratio is 0.9. The ECA PSV is 55 cm/s. There is antegrade flow in the left vertebral artery. IMPRESSION: 1. Less than 50% stenosis in the right internal carotid artery by sonographic criteria. 2. Less than 50% stenosis in the left internal carotid artery by sonographic criteria. Reviewed, dictated and finalized at location A. S FURNACE TENDER IMPRESSION: 1. Less than 50% stenosis in the right internal carotid artery by sonographic fatuma rios. 2. Less than 50% stenosis in the left internal carotid artery by sonographic shanice marquez.
== END 2022-10-01 14:23 | disposition home or self-care (01) ==
PROVIDERS: PCP Family Medicine; Visit Provider Nurse Practitioner Family
DX: E78.00 Pure hypercholesterolemia, unspecified (principal); R42 Dizziness and giddiness; I65.23 Occlusion and stenosis of bilateral carotid arteries
CPT/HCPCS: 93880

== ENCOUNTER 2022-10-31 14:14 | Emergency (ER) | payer BC, SELFPAY ==
--- NOTE | ~2022-10-31 | XR_ITS ---
XR knee RT min 4V 10/31/2022 16:49 Indication: Right knee pain Procedure: 4 views right knee Comparison: No prior studies for comparison. Findings: No fracture, subluxation or dislocation. No significant joint effusion. No joint space narr owing. There is anatomic alignment. No foreign bodies. Impression: 1: No acute bone or joint abnormality. Reviewed, dictated and finalized at location A. ING SUPPORT SPECIALIST Impression: 1: No acute bone or joint abnormality.
--- NOTE | ~2022-10-31 | XR_ITS ---
XR lumbar spine 2-3V 10/31/2022 16:50 Indication: Low back pain Procedure: 3 views lumbar spine Comparison: 04/08/2020 Findings: There is severe disc narrowing at L5-S1 with vacuum phenomena and marginal osteophytes. No acute fracture or traumatic malalignment. Vertebral body heights are maintained. Pedicles intact. Mil d dextrocurvature of the lumbar spine. Sacral foramen are symmetric. There are cholecystectomy clips. No evidence for spondylolisthesis. Impression: 1: No acute abnormality of the lumbar spine. 2: Severe lumbar spondylosis. Reviewed, dictated and finalized at location A. DRIER Impression: 1: No acute abnormality of the lumbar spine. 2: Severe lumbar spondylosis.
[2022-10-31 14:54] VITALS: BP 126/83; PULSE 89; RESP 16; TEMP 36.4; O2SAT 100
--- NOTE | 2022-10-31 15:43 | ED.EXTPRO ---
HPI - Extremity Problem General Chief complaint: Extremity Problem,Nontraumatic Stated complaint: right leg pain Time Seen by Provider: 10/31/22 15:43 Source: patient Mode of arrival: ambulatory Limitations: no limitations History of Present Illness HPI Narrative: Patient is a 51-year-old female with a history of bipolar disorder, history of addiction, hyperlipidemia, chronic lower back pain, presenting to the emergency department for evaluation of right knee pain. Patient reports pain is worsened in her right knee exacerbated with movement. Described as a dull, aching pain on the medial lateral aspect. She denies any bruising, swelling. She denies recent fall or injury. 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 Patient states that she may have strained her knee the other day when pushing a woman in a wheelchair. Patient has been ambulatory. She denies buttock pain. She denies saddle anesthesia or urinary incontinence. No difficulty with bowel movements. Patient denies any fever, chills, redness, rash. Patient denies numbness or weakness. In the past, patient has seen neurosurgery for lumbar radiculopathy. She had been seen by her primary care physician Per chart review in August 2022 and at that point, had not continue to follow with neurosurgery or obtain x-rays as ordered by the neurosurgeons. She has had steroid injections into the lower back in the past which has only minimally improved her symptoms. Related Data Home Medications Medication Instructions Recorded Confirmed doxepin 10 mg capsule 20 mg PO DAILY 05/16/22 09/09/22 bupropion HCl 150 mg tablet,12 hr 300 mg PO DAILY 08/13/22 09/09/22 sustained-release (Wellbutrin SR) Allergies Allergy/AdvReac Type Severity Reaction Status Date / Time aspirin Allergy Severe Swelling Verified 10/31/22 15:47 of Lip/Tongue/Throat hornet venom Allergy Severe Anaphylactic Verified 10/31/22 15:47 Shock morphine Allergy Severe Dyspnea / Verified 10/31/22 15:47 SOB Penicillins Allergy Severe Difficulty Verified 10/31/22 15:47 Breathing Sulfa (Sulfonamide Allergy Severe Swelling Verified 10/31/22 15:47 Antibiotics) tramadol Allergy Severe Itching Verified 10/31/22 15:47 venom-wasp Allergy Severe Anaphylactic Verified 10/31/22 15:47 Shock Bumble Bee Allergy Severe Anaphylactic Uncoded 10/31/22 15:47 Shock antibodticies AdvReac Severe Difficulty Uncoded 10/31/22 15:47 Breathing Review of Systems Review of Systems: CONSTITUTIONAL: Denies fever CARDIOVASCULAR: Denies chest pain RESPIRATORY: Denies cough or dyspnea. GASTROINTESTINAL: Denies abdominal pain SKIN: Denies rash MUSCULOSKELETAL: Reports chronic back pain, reports right knee pain NEUROLOGIC: Denies headache, denies weakness or numbness PMFSH Past Medical History Medical History Abdominal pain Acid reflux Alcoholism Anxiety Arthritis Cervical cancer Constipation Depression Diarrhea Dizziness Excessive thirst History of drug dependence History of postoperative complication of surgical procedure IBS (irritable bowel syndrome) Light headedness Miscarriage Nausea PTSD (post-traumatic stress disorder) Stomach ulcer (vaginal after ) Vision changes Vomiting Surgical History Surgical History H/O section H/O esophagogastroduodenoscopy H/O hysterectomy with oophorectomy H/O LEEP History of cholecystectomy Family History Family History Father Family history of suicide Mother Family history of primary malignant neoplasm of liver Other Alzheimer disease Arthritis Breast cancer Cerebrovascular accident Depression Diabetes mellitus Heart attack Heart diseas
[2022-10-31] MEDS: KETOROLAC (*BKC) 60 MG/2 ML VIAL 30 MG IM (16:24)
== END 2022-10-31 17:33 | disposition home or self-care (01) ==
PROVIDERS: Emergency Provider Emergency Medicine; PCP Family Medicine
DX: S86.911A Strain of unspecified muscle(s) and tendon(s) at lower leg level, right leg, initial encounter (principal); E78.5 Hyperlipidemia, unspecified; M19.90 Unspecified osteoarthritis, unspecified site; K58.9 Irritable bowel syndrome, unspecified; F43.10 Post-traumatic stress disorder, unspecified; F31.9 Bipolar disorder, unspecified; F41.9 Anxiety disorder, unspecified; Z90.710 Acquired absence of both cervix and uterus; M47.816 Spondylosis without myelopathy or radiculopathy, lumbar region; X50.0XXA Overexertion from strenuous movement or load, initial encounter
CPT/HCPCS: 72100; 73564; 96372; 99283; J1885

== ENCOUNTER 2023-01-13 12:49 | Outpatient (CLI) | payer BC, SELFPAY ==
--- NOTE | ~2023-01-13 | US_ITS ---
EXAMINATION: US venous doppler [facility] DATE: 01/13/2023 13:49 INDICATION: R60.0 - Localized edema . TECHNIQUE: Grayscale images without and with compression and Doppler images of the bilateral lower ex tremity veins were obtained. COMPARISON: 02/22/2020 FINDINGS: The right common femoral vein, profunda (deep) femoral vein, femoral vein, popliteal vein, peroneal v ein, posterior tibial veins, gastrocnemius vein, and greater saphenous vein are patent. The left common femoral vein, profunda femoral vein, femoral vein, popliteal vein, peroneal vein, pos terior tibial veins, gastrocnemius vein, and greater saphenous vein are patent. IMPRESSION: 1. Patent bilateral lower extremity veins. No evidence of deep venous thrombosis. Reviewed, dictated and finalized at location K. IMPRESSION: 1. Patent bilateral lower extremity veins. No evidence of deep venous thrombos is.
== END 2023-01-13 12:50 | disposition home or self-care (01) ==
PROVIDERS: PCP Family Medicine; Visit Provider Physician Assistant
DX: R60.0 Localized edema (principal)
CPT/HCPCS: 93970

== ENCOUNTER 2023-01-30 08:13 | Outpatient (CLI) | payer BC, SELFPAY ==
--- NOTE | ~2023-01-30 | NM_ITS ---
EXAM: NM gastric emptying study DATE: 01/30/2023 12:55 INDICATION: Postprandial nausea and vomiting TECHNIQUE: A gastric emptying study was performed using the methodology of Nataliya DRAKE, et al. J Nucl Med 2007; 48:568-572. The patient was given a meal consisting of 2 scrambled eggs labeled with 0.926 mCi Tc-99m sulfur colloid, 2 slices of toast, two packages of jam, and approximately 120 mL of water . Simultaneous anterior and posterior 1-min images of the abdomen were obtained with the patient supi ne at multiple time points over a total period of 4 hours. The geometric mean of anterior and posteri or views was determined, and the percentage retention was calculated for each time point. COMPARISON: None. FINDINGS: Gastric retention of the radiotracer-labeled meal was 44%, 24%, and 3% at the 1-hour, 2-hour, and 4-h our time points, respectively. With this technique, apparent rapid gastric emptying is suggested by < 30% gastric retention at 1 hour. Delayed gastric emptying is defined by gastric retention of >90% at 1 hour, >60% retention at 2 hours, or >10% retention at 4 hours. IMPRESSION: 1. Normal gastric emptying. Reviewed, dictated and finalized at location A. IMPRESSION: 1. Normal gastric emptying.
== END 2023-01-30 08:14 | disposition home or self-care (01) ==
LOC: ANHIMG 08:16
PROVIDERS: PCP Family Medicine; Visit Provider Nurse Practitioner Family
DX: R11.2 Nausea with vomiting, unspecified (principal)
CPT/HCPCS: 78264; A9541

== ENCOUNTER 2023-02-28 14:45 | Outpatient (RCR) | payer BC, SELFPAY ==
--- NOTE | 2023-01-16 11:49 | PTOPEVAL1 ---
Assessment and note entered by Chuy Yee, PT Evaluation Information Assessment Status Evaluation Diagnosis R knee pain Onset Jul-Aug Subjective Information Patient reports she has been having R knee pain that radiates down the foot and up the leg up to the hip. She has big trouble with walking and ramps. Her doctor has been working on her pain medications specifically Gabapentin, but still having a lot of issues with sleeping. Is a side sleeper. She reports she has a diagnosis of a knee sprain, but she cannot get an MRI until trying physical therapy. Patient reports unable to lift her whole leg up without using arms to help. Assessment PT Clinical Summary Laisha is a 52 year old female coming into the clinic with a diagnosis of R knee pain. Patient is convinced it is some sort of soft tissue injury . Patient has weakness in the hips and R knee to go with decrease knee range of motion. Patient's increased Q angle and genu valgus position is showing signs of possible needing for surgical consultation. Patient aware. Plan of Care Interventions Electrical Stimulation,Gait Training,Hot Pack/Cold Pack,Manual Therapy,Neuro Re-education,Patient/ Caregiver Education,Therapeutic Activities, Therapeutic Exercise,Ultrasound Other Interventions taping PT Services Indicated Yes Treatment Frequency and 1-2x/wk for 4 weeks Duration These treatments will address the objective and functional deficits as defined above. The patient will be advanced safely and appropriately in order for the patient to progress towards his/her prior level of function. Additional exercises will be introduced and as well as a comprehensive home exercise program upon discharge, if needed, ?to ensure carryover of functional gains achieved in the clinic. This treatment plan has been reviewed and agreement upon by the patient.
--- NOTE | 2023-02-11 13:04 | PCPTNOTE ---
Patient called & cancelled scheduled appointment this date due to work, rescheduled to 02/24 secondary to vacation next week.
--- NOTE | 2023-02-28 15:25 | PTOPDC ---
Assessment and note entered by Ana Maria Vaughan, PT Evaluation Information Assessment Status Discharge Diagnosis R knee pain Onset Jul-Aug Subjective Information Laisha saw the dr today--going to have MRI of her knee, continues to have swelling and pain in her knee; at work, has to stand and walk alot; after MRI, will refer her to ortho ; walking tolerance 5-10 minutes, then have to sit down; have had swelling in both legs lately; Reported Pain Level Pain Score Self Report Additional Pain Score Comments pain range in the past week 4-10/10; burning lateral knee, sharp pain; increase with walking, standing, sitting and cross leg over to put R shoe and sock on; decrease pain with ice, elevation, muscle cream; kinesiotape strip over lateral patella--educated pt on application of tape and monitor skin; she states she has some kinesiotape at home, has not used, is her husbands' Assessment PT Clinical Summary Laisha has received 7 PT sessions. Compared to the initial evaluation: pain rating at the low rating is worse, from 2 to 4/10 and worst is same at 10/10; sitting active ROM is about the same (-10') to 110'; pain with knee flexion and extension motions; poor standing position of R LE with hip and knee flexion, decreased wt bearing tolerance of R LE; decreased strength of R leg--in supine, is not able to perform SLR and with hip abduction, 10 reps with pain. She has been educated on home exercises, pain management with ice, elevation and rest. The goals were not achieved. She is to have an MRI of her knee. And have an ortho referral if needed. Discharge PT at this time, she is to continue with her home exercises. If additional therapy is needed, she will obtain a new order from the ortho . Plan of Care PT Services Indicated No
== END 2023-03-31 09:59 | disposition home or self-care (01) ==
LOC: ANHPT 14:45
PROVIDERS: PCP Family Medicine; Visit Provider Physician Assistant
DX: M25.561 Pain in right knee (principal)
CPT/HCPCS: 97110; 97112; 97140; 97161; 97530

== ENCOUNTER 2023-03-04 14:08 | Outpatient (CLI) | payer BC, SELFPAY ==
[2023-03-04 15:07] LABS: Alanine Aminotransferase 38 U/L (6-35); Albumin Level 4.7 g/dL (3.5-5.1); Alkaline Phosphatase 81 U/L (38-126); Anion Gap 8 mmol/L (8-16); Aspartate Amino Transferase 35 U/L (14-36); Bilirubin,Total 0.4 mg/dL (0.2-1.3); Blood Urea Nitrogen 13 mg/dL (7-17); Calcium 9.2 mg/dL (8.4-10.2); Carbon Dioxide 30 mmol/L (22-30); Chloride 103 mmol/L (98-107); Estimated Glomerular Filt Rate > 60; Glucose 99 mg/dL (65-110); Potassium 3.9 mmol/L (3.4-5.0); Sodium 141 mmol/L (137-145)
[2023-03-04 15:37] LABS: Hemoglobin A1C 5.5 % (<5.7)
[2023-03-04 17:04] LABS: Vitamin D 25 Hydroxy 48.4 ng/mL
== END 2023-03-04 14:09 | disposition home or self-care (01) ==
PROVIDERS: PCP Family Medicine; Visit Provider Physician Assistant
DX: R79.89 Other specified abnormal findings of blood chemistry (principal); R73.01 Impaired fasting glucose; E55.9 Vitamin D deficiency, unspecified
CPT/HCPCS: 36415; 80053; 82306; 83036; 84443

== ENCOUNTER 2023-04-14 16:57 | Outpatient (CLI) | payer BC, SELFPAY ==
--- NOTE | ~2023-04-14 | MR_ITS ---
EXAMINATION: MR knee RT wo con DATE: 04/14/2023 17:37 INDICATION: M25.561 - Pain in right knee TECHNIQUE: Magnetic resonance imaging (MRI) of the right knee was performed without intravenous contr ast. Sequences included axial PD-weighted FS FSE, coronal PD-weighted FSE and PD-weighted FS FSE, sag ittal PD-weighted FSE, and sagittal T2-weighted FS FSE. COMPARISON: X-ray right knee 10/31/2022 FINDINGS: Medial compartment: Mild apical fraying of the medial meniscus. Mild diffuse cartilage thinning. Mild osteophytosis. Lateral compartment: Intact meniscus. Mild diffuse cartilage thinning. Mild osteophytosis. Patellofemoral compartment: Intact retinacula. Mild cartilage thinning and partial-thickness cartilage signal abnormality along t he medial facet Ligaments and tendons: Low signal thickening of the MCL. The ACL, PCL, and LCL are intact. Remaining flexor and extensor ten dons are intact. Fluid: No significant fluid collection. Osseous/other: No suspicious focal or diffuse marrow signal. IMPRESSION: 1. 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 2. Mild tricompartmental osteoarthritic change. Reviewed, dictated and finalized at location K.
== END 2023-04-14 16:58 | disposition home or self-care (01) ==
PROVIDERS: PCP Family Medicine; Visit Provider Physician Assistant
DX: M17.11 Unilateral primary osteoarthritis, right knee (principal)
CPT/HCPCS: 73721

== ENCOUNTER 2023-09-11 09:29 | Outpatient (CLI) | payer BC, SELFPAY ==
[2023-09-11 10:47] LABS: Basophils Percent Auto 0.5 % (0.2-1.2); Eosinophils Absolute Auto 0.2 K/mm3 (0-0.3); Eosinophils Percent Auto 2.6 % (0-4.4); Hematocrit 40.2 % (37.0-47.0); Hemoglobin 12.4 g/dL (12.0-15.0); Immature Granulocyte Absolute 0.02 K/mm3 (0.00-0.031); Immature Granulocyte Percent A 0.3 % (0-0.5); Lymphocytes Absolute Auto 2.68 K/mm3 (0.9-3.2); Mean Corpuscular HGB Conc 30.8 g/dl (32-36); Mean Corpuscular Hemoglobin 26.4 pg (26-34); Mean Corpuscular Volume 85.5 fl (80-100); Mean Platelet Volume 9.7 fl (7.4-10.4); Monocytes Absolute Auto 0.5 K/mm3 (0.1-0.6); Monocytes Percent Auto 6.6 % (2.6-8.5); Platelet Count Result 376 k/mm3 (150-375); Red Cell Distribution Width 14.1 % (11.5-14.5); White Blood Count 7.5 K/mm3 (4.5-10.0)
[2023-09-11 11:17] LABS: Alanine Aminotransferase 35 U/L (6-35); Alkaline Phosphatase 82 U/L (38-126); Anion Gap 12 mmol/L (8-16); Aspartate Amino Transferase 37 U/L (14-36); Bilirubin,Total 0.6 mg/dL (0.2-1.3); Blood Urea Nitrogen 18 mg/dL (7-17); Calcium 9.9 mg/dL (8.4-10.2); Carbon Dioxide 29 mmol/L (22-30); Chloride 98 mmol/L (98-107); Estimated Glomerular Filt Rate > 60; Glucose 101 mg/dL (65-110); Potassium 3.9 mmol/L (3.4-5.0); Sodium 139 mmol/L (137-145)
[2023-09-11 11:19] LABS: Influenza A QL RT-PCR Negative (Negative); Influenza B QL RT-PCR Negative (Negative); SARS-CoV-2 RNA PCR Negative (Negative)
== END 2023-09-11 09:30 | disposition home or self-care (01) ==
LOC: ANHLAB 09:31
PROVIDERS: PCP Family Medicine; Visit Provider Physician Assistant
DX: R51.9 Headache, unspecified (principal); R53.83 Other fatigue; R50.9 Fever, unspecified; Z20.822 Contact with and (suspected) exposure to COVID-19
CPT/HCPCS: 36415; 80053; 84443; 85025; 87636

== ENCOUNTER 2023-10-21 08:45 | Outpatient (CLI) | payer BC, SELFPAY ==
--- NOTE | ~2023-10-21 | MR_ITS ---
EXAMINATION: MR brain/brain stem wo/w con DATE: 10/21/2023 09:49 INDICATION: Headache. Dizziness. TECHNIQUE: Magnetic resonance imaging (MRI) of the brain and brainstem was performed without and with 18 mL MultiHance intravenous contrast. COMPARISON: None. FINDINGS: There is no intracranial hemorrhage, acute infarction, or abnormal intracranial mass lesion . The ventricles are normal in size. There is a trace left mastoid effusion. The orbits are normal. T here is mild mucosal thickening in the paranasal sinuses. IMPRESSION: 1. Normal brain. Reviewed, dictated and finalized at location E. TION DIRECTOR IMPRESSION: 1. Normal brain.
== END 2023-10-21 08:46 | disposition home or self-care (01) ==
PROVIDERS: PCP Family Medicine; Visit Provider Physician Assistant
DX: R53.83 Other fatigue (principal); Z85.41 Personal history of malignant neoplasm of cervix uteri
CPT/HCPCS: 70553; A9577

== ENCOUNTER 2024-02-28 11:50 | Outpatient (CLI) | payer BC, SELFPAY ==
--- NOTE | ~2024-02-28 | MM_ITS ---
EXAMINATION: MM screening dickson BI w daphne HISTORY: Screening mammogram TECHNIQUE: Craniocaudal and mediolateral oblique 3-D tomosynthesis images were obtained and synthetic 2-D images were generated. CAD analysis was submitted and interpreted. COMPARISON: 12/06/2020, 09/02/2019 BREAST PARENCHYMAL COMPOSITION:Not Dense. The breasts are almost entirely fatty FINDINGS: No suspicious mass, calcification, or architectural distortion are identified in either shay ast to suggest malignancy. There has been no suspicious interval change. IMPRESSION: No mammographic evidence of malignancy. Recommend routine screening mammography in one year. BI-RADS Category 1: Negative Reviewed, dictated and finalized at location .
== END 2024-02-28 11:51 | disposition home or self-care (01) ==
LOC: ANHIMG 11:52
PROVIDERS: PCP Family Medicine; Visit Provider Obstetrics & Gynecology
DX: Z12.31 Encounter for screening mammogram for malignant neoplasm of breast (principal)
CPT/HCPCS: 77063; 77067

== ENCOUNTER 2024-06-05 01:28 | Emergency (ER) | payer MEDICAID, SELFPAY ==
[2024-06-05 01:33] VITALS: BP 125/52; PULSE 98; RESP 17; TEMP 37.3; O2SAT 98
--- NOTE | 2024-06-05 02:16 | ED.URI ---
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 Related Data Allergies Allergy/AdvReac Type Severity Reaction Status Date / Time aspirin Allergy Severe Swelling Verified 04/08/24 11:46 of Lip/Tongue/Throat hornet venom Allergy Severe Anaphylactic Verified 06/05/24 01:36 Shock morphine Allergy Severe Dyspnea / Verified 06/05/24 01:36 SOB Penicillins Allergy Severe Difficulty Verified 06/05/24 01:36 Breathing Sulfa (Sulfonamide Allergy Severe Swelling Verified 06/05/24 01:36 Antibiotics) tramadol Allergy Severe Itching Verified 06/05/24 01:36 venom-wasp Allergy Severe Anaphylactic Verified 06/05/24 01:36 Shock Bumble Bee Allergy Severe Anaphylactic Uncoded 01/06/24 14:04 Shock antibodticies AdvReac Severe Difficulty Uncoded 01/06/24 14:04 Breathing Review of Systems Review of Systems: All systems reviewed & are unremarkable except as noted in HPI and below PMFSH Past Medical History Medical History (Updated 06/05/24 @ 03:07 by María Darling MD) Abdominal pain Acid reflux Alcoholism Anxiety Arthritis Cervical cancer Constipation Cystocele Depression Diarrhea Dizziness Excessive thirst History of drug dependence History of postoperative complication of surgical procedure IBS (irritable bowel syndrome) Irritable bowel syndrome with alternating bowel habits Light headedness Miscarriage Nausea PTSD (post-traumatic stress disorder) Stomach ulcer (vaginal after ) Vision changes Vomiting Surgical History Surgical History H/O section H/O esophagogastroduodenoscopy H/O hysterectomy with oophorectomy H/O LEEP History of cholecystectomy Family History Family History Father Family history of suicide Mother Family history of primary malignant neoplasm of liver Other Alzheimer disease Arthritis Breast cancer Cerebrovascular accident Depression Diabetes mellitus Heart attack Heart disease History of cancer Hypertension Social History Social History Social History: Smoking status: Never smoker Second hand tobacco smoke exposure: No Alcohol intake: former Substance use: former Substance use type: marijuana and crack/cocaine Other substance usage details: 06/2010 Lack of Transportation: No Lack of Food: Never True Current Housing: I Have Housing Concerned About Future Housing: No Difficulty Paying Gas/Electric Bills: No Difficulty Paying for Meds: No Currently Unemployed: No Education: High School Diploma/GED Living arrangements: with family Occupation/Education: occupation Gender identity (if verbalized by the patient): Female Sexual Orientation (if Verbalized by the Patient): Straight or Heterosexual Spiritual care concerns: No Exam Narrative: EXAMINATION OF ORGAN SYSTEMS/BODY AREAS: Constitutional: Vital signs per nursing GENERAL:[No acute distress, non-toxic appearing.] HEAD: Normal with no signs of head trauma. EYES: EOMI, conjunctiva normal ENT: rhinorrhea and congestion LUNGS: Nonlabored breathing. HEART: [Regular rate and rhythm] ABD: [Soft], [nontender to palpation] EXT: Normal range of motion SKIN: [No rashes or lesions.] NEURO: [Alert and oriented x 3. No gross focal sensory or strength deficits.] PSYCH: Normal affect Course Vital Signs Vital signs: Vital Signs Temperature 99.2 F 06/05/24 01:33 Pulse Rate 98 06/05/24 01:33
[2024-06-05 02:20] LABS: Influenza A QL RT-PCR Negative (Negative); Influenza B QL RT-PCR Negative (Negative); RSV RNA, RT-PCR Negative (Negative); SARS-CoV-2 RNA PCR Positive (Negative)
[2024-06-05 02:22] VITALS: O2SAT 99
[2024-06-05 02:40] VITALS: BP 118/66; PULSE 86; RESP 16; O2SAT 96
[2024-06-05] MEDS: ACETAMINOPHEN 500 MG TABLET 1000 MG PO (02:40)
== END 2024-06-05 03:21 | disposition home or self-care (01) ==
PROVIDERS: Emergency Provider Emergency Medicine; PCP Family Medicine
DX: U07.1 COVID-19 (principal); Z85.41 Personal history of malignant neoplasm of cervix uteri
CPT/HCPCS: 87637; 99283; A9270

== ENCOUNTER 2024-06-11 08:39 | Emergency (ER) | payer MEDICAID, SELFPAY ==
[2024-06-11 08:53] VITALS: BP 139/83; PULSE 80; RESP 18; TEMP 36.8; O2SAT 97
[2024-06-11 09:40] LABS: Influenza A QL RT-PCR Negative (Negative); Influenza B QL RT-PCR Negative (Negative); RSV RNA, RT-PCR Negative (Negative); SARS-CoV-2 RNA PCR Positive (Negative)
--- NOTE | 2024-06-11 10:10 | ED.GENADULT ---
HPI - General Adult General Chief complaint: Upper Respiratory Infection Stated complaint: Needs COVID confirmation for work Time Seen by Provider: 06/11/24 09:09 History of Present Illness HPI narrative: 53-year-old female presenting to the emergency department for evaluation for COVID symptoms. Patient states on Friday she began developing symptoms of COVID did test positive on Friday. Patient states she needed a note to go back to work saying that she was cleared Related Data Allergies Allergy/AdvReac Type Severity Reaction Status Date / Time aspirin Allergy Severe Swelling Verified 04/08/24 11:46 of Lip/Tongue/Throat hornet venom Allergy Severe Anaphylactic Verified 06/05/24 01:36 Shock morphine Allergy Severe Dyspnea / Verified 06/05/24 01:36 SOB Penicillins Allergy Severe Difficulty Verified 06/05/24 01:36 Breathing Sulfa (Sulfonamide Allergy Severe Swelling Verified 06/05/24 01:36 Antibiotics) tramadol Allergy Severe Itching Verified 06/05/24 01:36 venom-wasp Allergy Severe Anaphylactic Verified 06/05/24 01:36 Shock Bumble Bee Allergy Severe Anaphylactic Uncoded 01/06/24 14:04 Shock antibodticies AdvReac Severe Difficulty Uncoded 01/06/24 14:04 Breathing Review of Systems Review of Systems: All systems reviewed & are unremarkable except as noted in HPI and below PMFSH Past Medical History Medical History (Updated 06/11/24 @ 10:12 by Eagle Noriega MD) Abdominal pain Acid reflux Alcoholism Anxiety Arthritis Cervical cancer Constipation Cystocele Depression Diarrhea Dizziness Excessive thirst History of drug dependence History of postoperative complication of surgical procedure IBS (irritable bowel syndrome) Irritable bowel syndrome with alternating bowel habits Light headedness Miscarriage Nausea PTSD (post-traumatic stress disorder) Stomach ulcer (vaginal after ) Vision changes Vomiting Surgical History Surgical History H/O section H/O esophagogastroduodenoscopy H/O hysterectomy with oophorectomy H/O LEEP History of cholecystectomy Family History Family History Father Family history of suicide Mother Family history of primary malignant neoplasm of liver Other Alzheimer disease Arthritis Breast cancer Cerebrovascular accident Depression Diabetes mellitus Heart attack Heart disease History of cancer Hypertension Social History Social History Social History: Smoking status: Never smoker Second hand tobacco smoke exposure: No Alcohol intake: former Substance use: former Substance use type: marijuana and crack/cocaine Other substance usage details: 06/2010 Lack of Transportation: No Lack of Food: Never True Current Housing: I Have Housing Concerned About Future Housing: No Difficulty Paying Gas/Electric Bills: No Difficulty Paying for Meds: No Currently Unemployed: No Education: High School Diploma/GED Living arrangements: with family Occupation/Education: occupation Gender identity (if verbalized by the patient): Female Sexual Orientation (if Verbalized by the Patient): Straight or Heterosexual Spiritual care concerns: No Exam Narrative: APPEARANCE: Well appearing, no pain, no distress, well-nourished. HEAD: normocephalic, atraumatic. EYES: PERRLA/EOMI, conjunctivae clear. NOSE: Normal no drainage EARS:TMS clear with good light reflex. THROAT: Pharynx clear, no exudate. NECK: Supple. No adenopathy, no masses. RESPIRATORY: Airway patent, respirations nonlabored. Clear to auscultation bilaterally, no rales, rhonchi, wheezing. CARDIOVASCULAR: Regular rate and rhythm without murmurs rubs or gallops. ABDOMINAL: Soft, nontender, nondistended, normal bowel sounds MUSCULOSKELETAL: Moves all ext
== END 2024-06-11 10:22 | disposition home or self-care (01) ==
PROVIDERS: Emergency Provider Emergency Medicine; PCP Family Medicine
DX: U07.1 COVID-19 (principal); J06.9 Acute upper respiratory infection, unspecified; K58.2 Mixed irritable bowel syndrome; M19.90 Unspecified osteoarthritis, unspecified site; F41.9 Anxiety disorder, unspecified; F32.A Depression, unspecified; F43.10 Post-traumatic stress disorder, unspecified; Z85.41 Personal history of malignant neoplasm of cervix uteri; Z90.710 Acquired absence of both cervix and uterus; Z90.49 Acquired absence of other specified parts of digestive tract; Z79.899 Other long term (current) drug therapy
CPT/HCPCS: 87637; 99283

== ENCOUNTER 2024-08-17 09:11 | Outpatient (CLI) | payer OTHER, SELFPAY ==
[2024-08-17 09:39] LABS: Basophils Percent Auto 0.5 % (0.2-1.2); Eosinophils Absolute Auto 0.1 K/mm3 (0-0.3); Eosinophils Percent Auto 1.9 % (0-4.4); Hematocrit 38.9 % (37.0-47.0); Hemoglobin 12.6 g/dL (12.0-15.0); Immature Granulocyte Absolute 0.01 K/mm3 (0.00-0.031); Immature Granulocyte Percent A 0.2 % (0-0.5); Lymphocytes Absolute Auto 2.39 K/mm3 (0.9-3.2); Lymphocytes Percent Auto 38.2 % (18.3-44.2); Mean Corpuscular HGB Conc 32.4 g/dl (32-36); Mean Corpuscular Hemoglobin 27.3 pg (26-34); Mean Corpuscular Volume 84.2 fl (80-100); Mean Platelet Volume 9.1 fl (7.4-10.4); Monocytes Absolute Auto 0.4 K/mm3 (0.1-0.6); Monocytes Percent Auto 5.6 % (2.6-8.5); Neutrophils Absolute Auto 3.4 K/mm3 (1.3-6.7); Neutrophils Percent Auto 53.6 % (45.5-73.1); Platelet Count Result 333 k/mm3 (150-375); Red Blood Count 4.62 M/mm3 (4.2-5.4); Red Cell Distribution Width 14.1 % (11.5-14.5); White Blood Count 6.3 K/mm3 (4.5-10.0)
[2024-08-17 09:49] LABS: Alanine Aminotransferase 24 U/L (6-35); Albumin Level 4.8 g/dL (3.5-5.1); Alkaline Phosphatase 97 U/L (38-126); Anion Gap 10 mmol/L (4-12); Aspartate Amino Transferase 28 U/L (14-36); Bilirubin,Total 0.4 mg/dL (0.2-1.3); Blood Urea Nitrogen 20 mg/dL (7-17); Calcium 9.4 mg/dL (8.4-10.2); Carbon Dioxide 28 mmol/L (22-30); Chloride 102 mmol/L (98-107); Cholesterol 251 mg/dL (0-200); Estimated Glomerular Filt Rate > 60; Glucose 98 mg/dL (65-110); HDL Direct 46 mg/dL; Sodium 140 mmol/L (137-145); Triglycerides 216 mg/dL (<150)
[2024-08-17 09:59] LABS: LDL Cholesterol Direct 142 mg/dL
[2024-08-17 10:01] LABS: Hemoglobin A1C 5.6 % (<5.7)
[2024-08-17 10:20] LABS: Total Triiodothyronine (T3) 1.29 NG/ML (0.97-1.69)
== END 2024-08-17 09:12 | disposition home or self-care (01) ==
PROVIDERS: PCP Family Medicine; Visit Provider Registered Nurse
DX: E78.5 Hyperlipidemia, unspecified (principal); R53.83 Other fatigue; R73.01 Impaired fasting glucose
CPT/HCPCS: 36415; 80053; 80061; 83036; 84439; 84443; 84480; 85025

== ENCOUNTER 2024-11-20 12:57 | Emergency (ER) | payer OTHER, SELFPAY ==
[2024-11-20] VITALS (29 sets, daily range): BP systolic 115–137; BP diastolic 66–85; PULSE 78–92; RESP 10–23; TEMP 36.3; O2SAT 94–100
--- NOTE | ~2024-11-20 | XR_ITS ---
EXAMINATION: XR chest 2V DATE: 11/20/2024 13:41 INDICATION: Chest pain and vomiting TECHNIQUE: PA and lateral views of the chest were obtained. COMPARISON: Chest radiograph and CT dated 08/11/2021 FINDINGS: The lungs are clear with no focal airspace opacities, pulmonary edema, pleural effusion or pneumothor ax. The cardiomediastinal silhouette is normal. Moderate thoracic spondylosis. Cholecystectomy clips in right upper quadrant. IMPRESSION: 1. No acute cardiopulmonary disease. Reviewed, dictated and finalized at location A. L CABINET FINISHER
--- NOTE | ~2024-11-20 | CT_ITS ---
CLINICAL INDICATION: Right and left upper quadrant pain COMPARISON: 07/27/2021. TECHNIQUE: Multiple contiguous axial images of the abdomen and pelvis were performed following the ad ministration of with 100 mL Omnipaque-350 intravenous contrast The dose-length product (DLP) was 535.08 mGy-cm. Automated exposure control and iterative reconstruction technique were employed. FINDINGS/OBSERVATIONS: Visualized lower thorax: The bilateral lung bases are clear. The heart is of normal size, without pericardial effusion. Liver: The liver enhances homogeneously and is not enlarged measuring 17 cm in longitudinal dimension. Gallbladder and biliary system: The gallbladder is surgically absent. Pancreas: The pancreas enhances homogeneously without ductal dilatation. Spleen: The spleen enhances homogeneously and is not enlarged measuring 11 cm in longitudinal dimension. Kidneys: The bilateral kidneys enhance symmetrically without hydronephrosis or renal calculi. Adrenal glands: Unremarkable. Gastrointestinal tract: Mural thickening and edema is identified within multiple loops of nondilated small bowel, at the leve l of the umbilicus, and extending to the right and left of midline (consistent with patient's history ). These loops extend into the pelvis. Surrounding inflammatory change is present. Appendix: The appendix is not definitively visualized. However, no pericecal inflammatory change is identified suggest the presence of acute appendicitis. Vasculature: Unremarkable. No aneurysmal dilatation or significant stenosis. Lymph nodes: No pathologically enlarged or morphologically suspicious lymph nodes within the retroperitoneum or at the root of the mesentery. Pelvic structures: The bladder is distended, and otherwise unremarkable. Free fluid is identified within the pelvis. The uterus is either surgically absent or markedly atrophic. Body wall and musculoskeletal: No significant degenerative disease within the lower thoracic or lumbosacral spine. IMPRESSION: Findings consistent with a focal enteritis within the mid small bowel, without obstruction. Reviewed, dictated and finalized at location A. [facility] [employer] HANDLERS
--- NOTE | 2024-11-20 12:59 | ECG_ITS ---
Test Date: 2024-11-20 13:03:17 Measurements Intervals [place] Rate: 91 P: 32 ME: 142 QRS: -12 QRSD: 98 T: 36 QT: 384 QTc: 474 Interpretive Statements SINUS RHYTHM MODERATE T-WAVE ABNORMALITY, CONSIDER ANTERIOR ISCHEMIA [-0.1+ mV T WAVE IN V3/V4] No previous ECG available for comparison Electronically Signed On 11-20-2024 14:19:12 LINEMAN by Silva Cameron M.D.
--- OUTSIDE RECORDS SUMMARY | 2024-11-20 12:59 | XMS_ITS | Clinical Summary ---
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 Gender Identity Not on file Sexual Orientation Not on file Plan of Treatment Health Maintenance Due Date Last Done Comments Hepatitis C Virus (HCV) Screening 1968 Hepatitis B Immunization (1 of 3 - 19+ 3-dose series) 1987 Pap Smear 1989 Cervical Cancer Screening (CCS) 1998 HPV/Cotest 1998 Colonoscopy 2013 Colorectal Cancer Screening 2013 Cologuard 2018 Immunochemical Fecal Occult Blood 2018 Mammogram 2018 Pneumococcal Immunization (5 0+ years) (1 of 1 - PCV) 2018 Zoster Immunization (1 of 2) 2018 Influenza Immunization (#1) 2024 SARS-COV-2 Immunization ( - season) 2024 Respiratory Syncytial Virus (RSV) Immunization (Adult) (1 - 1-dose 75+ series) 2043 DTaP/Tdap/Td Immunization Discontinued 06/12/2018 TdaP Immunization Completed 06/12/2018 Meningococcal Immunization (ACWY) Aged Out No longer eligible based on patient's age to complete this topic Pneumococcal Immunization Combined Aged Out No longer eligible based on patient's age to complete this topic Rotavirus Immunization Aged Out No lo nger eligible based on patient's age to complete this topic
--- OUTSIDE RECORDS SUMMARY | 2024-11-20 12:59 | XMS_ITS | Referral Summary ---
Author Organization [facility] [place] [address] Address [address] [place] [address] Care Team Providers Care Photoengraving Proofer Apprentice Name Role Phone Santiago Manley MD Primary Care Provider Encounters Date Type Department Care Team Description 10/29/2024 Telephone [facility] Primary Care at [address] [address] Ulises Wilkerson Toby 10 appt with Radha Fuentes cancelled from Last 3 Months Allergies Active Allergy Reactions Criticality Noted Date Comments Aspirin Rash Medium 09/14/2018 Morphine Shortness of breath High 09/23/2018 I know my heart stopped. Apparently she had some shortness of breath and was told she had a panic attack. No CPR etcetera. Looked through [facility] ER records and EMR, could not find any mention of a serious side effect. Sulfa (Sulfonamide Antibiotics) Anaphylaxis High 09/14/2018 Tramadol Nausea only Low 09/23/2018 Medications traZODone (DESYREL) 100 mg tablet Take 100 mg by mouth nightly. 08/26/2018 Active cloNIDine (CATAPRES) 0.1 mg tablet Take 0.1 mg by mouth 2 (two) times a day as needed. 09/14/[address] (PROTONIX) 40 mg EC tablet Take 40 mg by mouth daily. 09/07/2018 Active venlafaxine XR (EFFEXOR-XR) 37.5 mg 24 hr capsule Take 37.5 mg by mouth daily. 09/22/2018 Active LATUDA 40 mg tablet Take 40 mg by mouth daily. 07/07/2018 Active levocetirizine (XYZAL) 5 mg tablet Take 5 mg by mouth every evening. Active Active Problems Problem Noted Date Diagnosed Date Precordial pain 09/23/2018 Abnormal stress test 09/23/2018 Palpitations 09/23/2018 Mixed hyperlipidemia 09/23/2018 Bipolar disorder in partial remission ([facility]) 09/23/2018 History of substance abuse ([facility]) 09/23/2018 Aspirin allergy 09/23/2018 Social History Tobacco Use Types Packs/Day Years Used Date Smoking Tobacco: Never Smokeless Tobacco: Never Tobacco Cessation:Counseling Given: Yes Personal Safety Answer Date Recorded Getting School Help Needed Not on file 01/10 Comments Unknown Sex and Gender Information Value Date Recorded Sex Assigned at Not on file Legal Sex Female 4:53 PM INSTRUMENTATION DESIGNER Gender Identity Female 07/19/2024 3:13 PM CDT Sexual Orientation Asexual 07/19/2024 3: 13 PM CDT Last Filed Vital Signs Vital Sign Reading Time Taken Comments Blood Pressure 118/66 09/23/2018 4:21 PM INSTRUMENTATION DESIGNER Pulse 77 09/23/2018 4:21 PM INSTRUMENTATION DESIGNER Temperature - - Respiratory Rate - - Oxygen Saturation 98% 09/23/2018 4:21 PM INSTRUMENTATION DESIGNER Inhaled Oxygen Concentration - - Weight 91.6 kg (202 lb) 09/23/2018 4:21 PM INSTRUMENTATION DESIGNER Height 163.8 cm (5' 4.5 ) 09/23/2018 4:21 PM INSTRUMENTATION DESIGNER Body Mass Index 34.14 09/23/2018 4:21 PM INSTRUMENTATION DESIGNER Plan of Treatment Not on file Insurance [facility] [address] [facility] [address] [place] [id number] [facility] [address] [facility] [address] [place] [id number] [facility] Care Teams Photoengraving Proofer Apprentice Relationship Specialty Start Date End Date Santiago Manley MD [address] [place] [address] PCP - General 09/21/17
--- OUTSIDE RECORDS SUMMARY | 2024-11-20 12:59 | XMS_ITS | Clinical Summary ---
Author Organization [facility] [place] [address] Address [address] [place] [address] Care Team Providers Care Kennel Worker Name Role Phone Santiago Manley MD Primary Care Provider Allergies Active Allergy Reactions Criticality Noted Date Comments Aspirin Rash Medium 09/14/2018 Morphine Shortness of breath High 09/23/2018 I know my heart stopped. Apparently she had some shortness of breath and was told she had a panic attack. No CPR etcetera. Looked through [facility] ER records and EMR, could not find [...] hyperlipidemia 09/23/2018 Bipolar disorder in partial remission (CMS/HCC) 09/23/2018 History of substance abuse (CMS/HCC) 09/23/2018 Aspirin allergy 09/23/2018 Encounters Date Type Department Care Team Description 10/29/2024 Telephone [facility] Primary Care at [address] [address] Ulises Wilkerson Toby 10 appt with Radha Fuentes cancelled from Last 3 Months Surgical History Surgery Date Site/Laterality Comments CHOLECYSTECTOMY HYSTERECTOMY Medical History Medical History Date Comments Substance abuse (CMS/[facility] ([facility]) Clean since 2009 Tubal ligation status Cervical cancer (CMS/[facility]) ([facility]) Esophagitis Dr. Alves GERD (gastroesophageal reflux disease) Bipolar disorder ([facility]) Panic attacks IBS (irritable bowel syndrome) Nephrolithiasis Family History Medical History Relation Name Comments Suicide Completion Father Cancer Mother Relation Name Status Comments Father (Age 51) Suicide Mother (Age 60) Metastatic [place] Social History Tobacco Use Types Packs/Day Years Used Date Smoking Tobacco: Never Smokeless Tobacco: Never Tobacco Cessation:Counseling Given: Yes Personal Safety Answer Date Recorded Getting School Help Needed Not on file 01/10 Comments Unknown Sex and Gender Information Value Date Recorded Sex Assigned at Not on file Legal Sex Female 4:53 PM 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 [employer] COLLECTIONS Gender Identity Female 07/19/2024 3:13 PM CDT Sexual Orientation Asexual 07/19/2024 3: 13 PM CDT Obstetrics History Last Filed Vital Signs Vital Sign Reading Time Taken Comments Blood Pressure 118/66 09/23/2018 4:21 PM [employer] Pulse 77 09/23/2018 4:21 PM [employer] Temperature - - Respiratory Rate - - Oxygen Saturation 98% 09/23/2018 4:21 PM [employer] Inhaled Oxygen Concentration - - Weight 91.6 kg (202 lb) 09/23/2018 4:21 PM [employer] Height 163.8 cm (5' 4.5 ) 09/23/2018 4:21 PM [employer] Body Mass Index 34.14 09/23/2018 4:21 PM [employer] Plan of Treatment Not on file [place] [address] [address] Care Teams Kennel Worker Relationship Specialty Start Date End Date Santiago Manley MD [address] [facility] [address] [place] [address] PCP - General 09/21/17
[2024-11-20 13:15] LABS: Basophils Percent Auto 0.3 % (0.2-1.2); Eosinophils Percent Auto 0.3 % (0-4.4); Hematocrit 41.3 % (37.0-47.0); Hemoglobin 13.4 g/dL (12.0-15.0); Immature Granulocyte Absolute 0.03 K/mm3 (0.00-0.031); Immature Granulocyte Percent A 0.3 % (0-0.5); Lymphocytes Absolute Auto 1.78 K/mm3 (0.9-3.2); Lymphocytes Percent Auto 14.9 % (18.3-44.2); Mean Corpuscular HGB Conc 32.4 g/dl (32-36); Mean Corpuscular Hemoglobin 27.7 pg (26-34); Mean Corpuscular Volume 85.3 fl (80-100); Mean Platelet Volume 9.3 fl (7.4-10.4); Monocytes Absolute Auto 0.7 K/mm3 (0.1-0.6); Monocytes Percent Auto 6.1 % (2.6-8.5); Neutrophils Absolute Auto 9.4 K/mm3 (1.3-6.7); Neutrophils Percent Auto 78.1 % (45.5-73.1); Platelet Count Result 415 k/mm3 (150-375); Red Blood Count 4.84 M/mm3 (4.2-5.4); Red Cell Distribution Width 14.4 % (11.5-14.5)
[2024-11-20 13:25] LABS: Alanine Aminotransferase 22 U/L (6-35); Alkaline Phosphatase 111 U/L (38-126); Anion Gap 13 mmol/L (4-12); Aspartate Amino Transferase 23 U/L (14-36); Bilirubin,Total 0.8 mg/dL (0.2-1.3); Blood Urea Nitrogen 17 mg/dL (7-17); Calcium 9.5 mg/dL (8.4-10.2); Carbon Dioxide 27 mmol/L (22-30); Chloride 99 mmol/L (98-107); Estimated CRCL calculation 76 ml/min; Estimated Glomerular Filt Rate > 60; Glucose 133 mg/dL (65-110); Lipase 61 U/L (23-300); Potassium 3.7 mmol/L (3.4-5.0); Sodium 139 mmol/L (137-145)
[2024-11-20 13:26] LABS: Partial Thromboplastin Time 32.1 Seconds (22.3-36.8); Prothrombin Time 13.3 Seconds (11.1-14.7)
[2024-11-20 13:36] LABS: Troponin I < 0.012 ng/mL (0.000-0.034)
--- OUTSIDE RECORDS SUMMARY | 2024-11-20 14:05 | XMS_ITS | Clinical Summary ---
Author [place] [facility] [place] [address] Address [address] [place] [address] Care Team Providers Care Glassware Maker Demonstrator Name Role Phone Santiago Manley MD Primary Care Provider Allergies Active Allergy Reactions Criticality Noted Date Comments Aspirin Rash Medium 09/14/2018 Morphine Shortness of breath High 09/23/2018 I know my heart stopped. Apparently she had some shortness of breath and was told she had a panic attack. No CPR etcetera. Looked through [facility] ER records and EMR, could not find [...] Type Department Care Team Description 10/29/2024 Telephone [facility] Primary Care at [address] [address] Ulises Wilkerson Toby 10 appt with Radha Fuentes cancelled from Last 3 Months Surgical History Surgery Date Site/Laterality Comments CHOLECYSTECTOMY HYSTERECTOMY Medical History Medical History Date Comments Substance abuse (CMS/[facility]) ([facility]) Clean since 2009 Tubal ligation status Cervical cancer (CMS/[facility]) ([facility]) Esophagitis Dr. Alves GERD (gastroesophageal reflux disease) Bipolar disorder ([facility]) Panic attacks IBS (irritable bowel syndrome) Nephrolithiasis [...] on file Legal Sex Female 4:53 PM SALT LIFTER Gender Identity Female 07/19/2024 3:13 PM CDT Sexual Orientation Asexual 07/19/2024 3: 13 PM CDT Obstetrics History Last Filed Vital Signs Vital Sign Reading Time Taken Comments Blood Pressure 118/66 09/23/2018 4:21 PM SALT LIFTER Pulse 77 09/23/2018 4:21 PM SALT LIFTER Temperature - - Respiratory Rate - - Oxygen Saturation 98% 09/23/2018 4:21 PM SALT LIFTER Inhaled Oxygen Concentration - - Weight 91.6 kg (202 lb) 09/23/2018 4:21 PM SALT LIFTER Height 163.8 cm (5' 4.5 ) 09/23/2018 4:21 PM SALT LIFTER Body Mass Index 34.14 09/23/2018 4:21 PM SALT LIFTER Plan of Treatment Not on file [place] [address] [place] [address] Care Teams Glassware Maker Demonstrator Relationship Specialty Start Date End Date Santiago Manley MD [address] [facility] [address] [place] [address] PCP - General 09/21/17
--- OUTSIDE RECORDS SUMMARY | 2024-11-20 14:05 | XMS_ITS | Clinical Summary ---
Author Organization 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
--- OUTSIDE RECORDS SUMMARY | 2024-11-20 14:05 | XMS_ITS | Referral Summary ---
Author Organization [facility] [place] [address] Address [address] [place] [address] Care Team Providers Care Interlocking Installer Name Role Phone Santiago Manley MD Primary Care Provider Encounters Date Type Department Care Team Description 10/29/2024 Telephone [facility] Primary Care at [address] [address] Ulises Wilkerson Toby 10 appt with Radha Fuentes cancelled from Last 3 Months Allergies Active Allergy Reactions Criticality Noted Date Comments Aspirin Rash Medium 09/14/2018 Morphine Shortness of breath High 09/23/2018 I know my heart stopped. Apparently she had some shortness of breath and was told she had a panic attack. No CPR etcetera. Looked through [facility] ER records and EMR, could not [...] hyperlipidemia 09/23/2018 Bipolar disorder in partial remission ([facility]) 09/23/2018 History of substance abuse ([facility]) 09/23/2018 Aspirin allergy 09/23/2018 Social History Tobacco Use Types Packs/Day Years Used Date Smoking Tobacco: Never Smokeless Tobacco: Never Tobacco Cessation:Counseling Given: Yes Personal Safety Answer Date Recorded Getting School Help Needed Not on file 01/10 Comments Unknown Sex and Gender Information Value Date Recorded Sex Assigned at Not on file Legal Sex Female 4:53 PM BRASS MOLDER HELPER Gender Identity Female 07/19/2024 3:13 PM CDT Sexual Orientation Asexual 07/19/2024 3: 13 PM CDT Last Filed Vital Signs Vital Sign Reading Time Taken Comments Blood Pressure 118/66 09/23/2018 4:21 PM BRASS MOLDER HELPER Pulse 77 09/23/2018 4:21 PM BRASS MOLDER HELPER Temperature - - Respiratory Rate - - Oxygen Saturation 98% 09/23/2018 4:21 PM BRASS MOLDER HELPER Inhaled Oxygen Concentration - - Weight 91.6 kg (202 lb) 09/23/2018 4:21 PM BRASS MOLDER HELPER Height 163.8 cm (5' 4.5 ) 09/23/2018 4:21 PM BRASS MOLDER HELPER Body Mass Index 34.14 09/23/2018 4:21 PM BRASS MOLDER HELPER Plan of Treatment Not on file Insurance [facility] [address] [facility] [address] [place] [id number] [facility] [address] [place] [phone] [facility] Care Teams Interlocking Installer Relationship Specialty Start Date End Date Santiago Manley MD [address] [place] [address] [place] [address] PCP - General 09/21/17
[2024-11-20] MEDS: MAG HYDROX/AL HYDROX/SIMETH 30 ML UDC PO (15:40)
[2024-11-20] MEDS: PANTOPRAZOLE SODIUM IV 40 MG VIAL IV PUSH (15:41)
[2024-11-20 16:16] LABS: Troponin I < 0.012 ng/mL (0.000-0.034)
--- NOTE | 2024-11-20 16:36 | ED_ITS ---
HPI - General Adult General Chief complaint: Chest Pain <Suresh García MD - Last Filed: 11/20/24 19:10> Stated complaint: chest pain N/V <Suresh García MD - Last Filed: 11/20/24 19:10> Time Seen by Provider: 11/20/24 13:57 <Suresh García MD - Last Filed: 11/20/24 19:10> History of Present Illness HPI narrative: This is a 53-year-old female with a history of GERD presenting with abdominal pain and chest pain. Patient says that her insurance no longer covers her omeprazole. Since she stopped taking it she has developed epigastric pain that radiates up into her chest. Is associated with a bad taste in her mouth. She has also had nausea and vomiting. Patient denies fevers chills shortness of breath, diaphoresis, exertional chest pain or lower extremity edema. <Suresh García MD - Last Filed: 11/20/24 19:10> Related Data Allergies/adverse reactions: Allergies Allergy/AdvReac Type Severity Reaction Status Date / Time aspirin Allergy Severe Swelling Verified 11/20/24 12:58 of Lip/Tongue/Throat hornet venom Allergy Severe Anaphylactic Verified 11/20/24 12:58 Shock morphine Allergy Severe Dyspnea / Verified 11/20/24 12:58 SOB Penicillins Allergy Severe Difficulty Verified 11/20/24 12:58 Breathing Sulfa (Sulfonamide Allergy Severe Swelling Verified 11/20/24 12:58 Antibiotics) tramadol Allergy Severe Itching Verified 11/20/24 12:58 venom-wasp Allergy Severe Anaphylactic Verified 11/20/24 12:58 Shock Bumble Bee Allergy Severe Anaphylactic Uncoded 11/20/24 12:58 Shock antibodticies AdvReac Severe Difficulty Uncoded 11/20/24 12:58 Breathing <Suresh García MD - Last Filed: 11/20/24 19:10> PMFSH Past Medical History Medical History: Medical History Abdominal pain Acid reflux Alcoholism Anxiety Arthritis Cervical cancer Constipation Cystocele Depression Diarrhea Dizziness Excessive thirst History of drug dependence History of postoperative complication of surgical procedure IBS (irritable bowel syndrome) Irritable bowel syndrome with alternating bowel habits Light headedness Miscarriage Nausea PTSD (post-traumatic stress disorder) Stomach ulcer (vaginal after ) Vision changes Vomiting <Suresh García MD - Last Filed: 11/20/24 19:10> Surgical History Surgical History: Surgical History H/O section H/O esophagogastroduodenoscopy H/O hysterectomy with oophorectomy H/O LEEP History of cholecystectomy <Suresh García MD - Last Filed: 11/20/24 19:10> Family History Family History: Family History Father Family history of suicide Mother Family history of primary malignant neoplasm of liver Other Alzheimer disease Arthritis Breast cancer Cerebrovascular accident Depression Diabetes mellitus Heart attack Heart disease History of cancer Hypertension <Suresh García MD - Last Filed: 11/20/24 19:10> Social History Social History: Social History Social History: Smoking status: Never smoker Second hand tobacco smoke exposure: No Alcohol intake: former Substance use: former Substance use type: marijuana and crack/cocaine Other substance usage details: 06/2010 Lack of Transportation: No Lack of Food: Never True Current Housing: I Have Housing Concerned About Future Housing: No Difficulty Paying Gas/Electric Bills: No Difficulty Paying for Meds: No Currently Unemployed: No Education: High School Diploma/GED Living arrangements: with family Occupation/Education: occupation Gender identity (if verbalized by the patient): Female Sexual Orientation (if Verbalized by the Patient): Straight or Heterosexual Spiritual care concerns: No <Suresh García MD - Last Filed: 11/20/24 19:10> Exam 2 Narrative: APPEARANCE: No apparent distress. Head: atraumatic. EYES: EOMI, NOSE: Atraumatic NECK: Trachea midline RESPIRATORY: No increased rate of breathing CTAB CARDIOVASCULAR: RRR, no peripheral edema ABDOMINAL: Non-distended soft nontender no guarding rebound MUSCULOSKELETAl: No obvious deformities NEURO: Alert. Moving 4/4 extremities SKIN:: Warm, dry. Normal color PSYCHIATRIC: Normal affect <Suresh García MD - Last Filed: 11/20/24 19:10> Course Course Emergency Course: Patient was signed out to me by previous physicians pending CT of the abdomen and pelvis. CT was independently reviewed and independently assessed the patient. CT shows some focal enteritis but no bowel obstruction or abscess formation. Patient was re-evaluated, comfortable with stable reassuring vital signs. She is able tolerate p.o. intake. She has not had any kind of loose diarrhea or bloody diarrhea or any kind of fevers. Likely viral in nature based on her recent symptoms at also exacerbated by her being off of her GERD medications as well. Previous physician has been able to prescribe her Pepcid and I also gave her Bentyl and Zofran for continued symptom control. No indications at this time for antibiotics given the likely viral nature of her gastroenteritis. Patient was given strict return precautions and instructions for follow-up. She verbalized understanding and was safe for discharge at this time. <Biju Kraus MD - Last Filed: 11/20/24 20:46> Vital Signs Vital signs: Vital Signs Temperature 36.3 C L 11/20/24 13:11 Pulse Rate 92 11/20/24 13:11 Respiratory Rate 18 11/20/24 13:11 Blood Pressure 137/66 11/20/24 13:11 Pulse Oximetry 100 11/20/24 13:11 Oxygen Delivery Room Air 11/20/24 13:11 Temperature 36.3 C L 11/20/24 13:11 Pulse Rate 85 11/20/24 18:16 Respiratory Rate 10 L 11/20/24 18:16 Blood Pressure 117/68 11/20/24 18:16 Pulse Oximetry 97 11/20/24 18:16 Oxygen Delivery Room Air 11/20/24 13:19 <Suresh García MD - Last Filed: 11/20/24 19:10> Vital Signs Temperature 36.3 C L 11/20/24 13:11 Pulse Rate 92 11/20/24 13:11 Respiratory Rate 18 11/20/24 13:11 Blood Pressure 137/66 11/20/24 13:11 Pulse Oximetry 100 11/20/24 13:11 Oxygen Delivery Room Air 11/20/24 13:11 Temperature 36.3 C L 11/20/24 13:11 Pulse Rate 85 11/20/24 18:16 Respiratory Rate 10 L 11/20/24 18:16 Blood Pressure 117/68 11/20/24 18:16 Pulse Oximetry 97 11/20/24 18:16 Oxygen Delivery Room Air 11/20/24 13:19 <Biju Kraus MD - Last Filed: 11/20/24 20:46> Medical Decision Making MDM Narrative Medical decision making narrative: -Course: 53-year-old female presenting with epigastric pain and reflux symptoms. She was concerned about an MT but her chest pain workup is negative. She was given a GI cocktaill and IV Protonix but is still complaining of abdominal pain. Patient given a dose of Toradol and a CT abdomen pelvis was ordered to further evaluate pain. Patient signed out to the oncoming physician pending CT scan. Expect discharge if CT scan is negative. -DDX includes but is not limited to: GERD, reflux, esophagitis, ACS, pneumonia -Independent interpretation of studies: Labs and imaging reviewed Independent EKG interpretation: Rhythm [sinus], Rate [91], [place] -[normal], [place] -[normal], QRS [narrow], QTC [normal], T waves -T-wave inversions V2 V3, ST Segments - [Negative for concerning elevations] Final interpretations: Normal sinus rhythm with nonspecific T-wave inversions V2 V3 -Interventions: Maalox, Protonix -Shared decision making / Disposition: Discharge -RX Pepcid <Suresh García MD - Last Filed: 11/20/24 19:10> Vital Signs Vital Signs: Vital Signs Temperature 36.3 C L 11/20/24 13:11 Pulse Rate 92 11/20/24 13:11 Respiratory Rate 18 11/20/24 13:11 Blood Pressure 137/66 11/20/24 13:11 Pulse Oximetry 100 11/20/24 13:11 Oxygen Delivery Room Air 11/20/24 13:11 Temperature 36.3 C L 11/20/24 13:11 Pulse Rate 85 11/20/24 18:16 Respiratory Rate 10 L 11/20/24 18:16 Blood Pressure 117/68 11/20/24 18:16 Pulse Oximetry 97 11/20/24 18:16 Oxygen Delivery Room Air 11/20/24 13:19 <Suresh García MD - Last Filed: 11/20/24 19:10> Vital Signs Temperature 36.3 C L 11/20/24 13:11 Pulse Rate 92 11/20/24 13:11 Respiratory Rate 18 11/20/24 13:11 Blood Pressure 137/66 11/20/24 13:11 Pulse Oximetry 100 11/20/24 13:11 Oxygen Delivery Room Air 11/20/24 13:11 Temperature 36.3 C L 11/20/24 13:11 Pulse Rate 85 11/20/24 18:16 Respiratory Rate 10 L 11/20/24 18:16 Blood Pressure 117/68 11/20/24 18:16 Pulse Oximetry 97 11/20/24 18:16 Oxygen Delivery Room Air 11/20/24 13:19 <Biju Kraus MD - Last Filed: 11/20/24 20:46> Lab Data Result diagrams: 11/20/24 13:08 11/20/24 13:08 <Suresh García MD - Last Filed: 11/20/24 19:10> Labs: Lab Results 11/20/24 11/20/24 11/20/24 Range/Units 13:08 15:47 19:16 WBC 12.0 H (4.5-10.0) K/mm3 RBC 4.84 (4.2-5.4) M/mm3 Hgb 13.4 (12.0-15.0) g/dL Hct 41.3 (37.0-47.0) % MCV 85.3 (80-100) fl MCH 27.7 (26-34) pg MCHC 32.4 (32-36) g/dl RDW 14.4 (11.5-14.5) % Plt Count 415 H (150-375) k/mm3 MPV 9.3 (7.4-10.4) fl Immature Gran % (Auto) 0.3 (0-0.5) % Neut % (Auto) 78.1 H (45.5-73.1) % Lymph % (Auto) 14.9 L (18.3-44.2) % Mcintosh % (Auto) 6.1 (2.6-8.5) % Eos % (Auto) 0.3 (0-4.4) % Baso % (Auto) 0.3 (0.2-1.2) % Lymph # (Auto) 1.78 (0.9-3.2) K/mm3 Mcintosh # (Auto) 0.7 H (0.1-0.6) K/mm3 Eos # (Auto) 0.0 (0-0.3) K/mm3 Baso # (Auto) 0.0 (0.0-0.1) K/mm3 Abs Immat Gran (auto) 0.03 (0.00-0.031) K/mm3 Absolute Neuts (auto) 9.4 H (1.3-6.7) K/mm3 Absolute Nucleated RBC 0.000 (0.0-0.012) K/mm3 Nucleated RBC % 0.0 (0.0-0.2) % PT 13.3 (11.1-14.7) Seconds INR 1.0 APTT 32.1 (22.3-36.8) Seconds Sodium 139 (137-145) mmol/L Potassium 3.7 (3.4-5.0) mmol/L Chloride 99 (98-107) mmol/L Carbon Dioxide 27 (22-30) mmol/L Anion Gap 13 H (4-12) mmol/L BUN 17 (7-17) mg/dL Creatinine 0.78 (0.7-1.0) mg/dL Estim Creat Clear Calc 76 ml/min Estimated GFR > 60 (59 - ) Glucose 133 H (65-110) mg/dL Calcium 9.5 (8.4-10.2) mg/dL Total Bilirubin 0.8 (0.2-1.3) mg/dL AST 23 (14-36) U/L ALT 22 (6-35) U/L Alkaline Phosphatase 111 (38-126) U/L Troponin I < 0.012 < 0.012 < 0.012 (0.000-0.034) ng/mL Total Protein 8.0 (6.3-8.2) g/dL Albumin 5.0 (3.5-5.1) g/dL Lipase 61 (23-300) U/L <Suresh García MD - Last Filed: 11/20/24 19:10> Lab Results 11/20/24 11/20/24 11/20/24 Range/Units 13:08 15:47 19:16 WBC 12.0 H (4.5-10.0) K/mm3 RBC 4.84 (4.2-5.4) M/mm3 Hgb 13.4 (12.0-15.0) g/dL Hct 41.3 (37.0-47.0) % MCV 85.3 (80-100) fl MCH 27.7 (26-34) pg MCHC 32.4 (32-36) g/dl RDW 14.4 (11.5-14.5) % Plt Count 415 H (150-375) k/mm3 MPV 9.3 (7.4-10.4) fl Immature Gran % (Auto) 0.3 (0-0.5) % Neut % (Auto) 78.1 H (45.5-73.1) % Lymph % (Auto) 14.9 L (18.3-44.2) % Mcintosh % (Auto) 6.1 (2.6-8.5) % Eos % (Auto) 0.3 (0-4.4) % Baso % (Auto) 0.3 (0.2-1.2) % Lymph # (Auto) 1.78 (0.9-3.2) K/mm3 Mcintosh # (Auto) 0.7 H (0.1-0.6) K/mm3 Eos # (Auto) 0.0 (0-0.3) K/mm3 Baso # (Auto) 0.0 (0.0-0.1) K/mm3 Abs Immat Gran (auto) 0.03 (0.00-0.031) K/mm3 Absolute Neuts (auto) 9.4 H (1.3-6.7) K/mm3 Absolute Nucleated RBC 0.000 (0.0-0.012) K/mm3 Nucleated RBC % 0.0 (0.0-0.2) % PT 13.3 (11.1-14.7) Seconds INR 1.0 APTT 32.1 (22.3-36.8) Seconds Sodium 139 (137-145) mmol/L Potassium 3.7 (3.4-5.0) mmol/L Chloride 99 (98-107) mmol/L Carbon Dioxide 27 (22-30) mmol/L Anion Gap 13 H (4-12) mmol/L BUN 17 (7-17) mg/dL Creatinine 0.78 (0.7-1.0) mg/dL Estim Creat Clear Calc 76 ml/min Estimated GFR > 60 (59 - ) Glucose 133 H (65-110) mg/dL Calcium 9.5 (8.4-10.2) mg/dL Total Bilirubin 0.8 (0.2-1.3) mg/dL AST 23 (14-36) U/L ALT 22 (6-35) U/L Alkaline Phosphatase 111 (38-126) U/L Troponin I < 0.012 < 0.012 < 0.012 (0.000-0.034) ng/mL Total Protein 8.0 (6.3-8.2) g/dL Albumin 5.0 (3.5-5.1) g/dL Lipase 61 (23-300) U/L <Biju Kraus MD - Last Filed: 11/20/24 20:46> Discharge Plan Discharge Clinical Impression: Chest pain due to GERD, Enteritis <Suresh García MD - Last Filed: 11/20/24 19:10> Patient Disposition: Home, Self-Care <Suresh García MD - Last Filed: 11/20/24 19:10> Condition: Stable <Suresh García MD - Last Filed: 11/20/24 19:10> Instructions: Antibiotic Form, Gastroenteritis (DC), GERD (Gastroesophageal Reflux Disease) (DC), Enteritis (ED) <Suresh García MD - Last Filed: 11/20/24 19:10> Additional Instructions: Please take Pepcid twice a day as needed for reflux. Please follow-up with your primary care physician for further management. Return to the ED if you develop severe pain, shortness of breath or any new or worsening symptoms. We have also sent you home with some nausea controlling medications, if you start experiencing diffusely watery diarrhea, bloody diarrhea, fevers that are not responsive to Tylenol please return to the emergency department at that time. <Suresh García MD - Last Filed: 11/20/24 19:10> Patient Language: Macedonian <Suresh García MD - Last Filed: 11/20/24 19:10> Prescriptions: New famotidine [Pepcid] 20 mg tablet 20 mg PO BID 42 Days Qty: 84 0RF dicyclomine 20 mg tablet 20 mg PO TID PRN (Reason: abdominal pain) Qty: 14 0RF ondansetron 4 mg tablet,disintegrating 4 mg PO Q8H PRN (Reason: nausea and vomiting) Qty: 10 0RF No Action tolterodine [Detrol LA] 2 mg capsule,extended release 24hr 2 mg PO DAILY Qty: 30 0RF sumatriptan succinate 50 mg tablet See Rx Instructions PO .COMPLEX Qty: 30 0RF Rx Instructions: take 1 tab at onset of headache; if no relief may repeat 1 tab after at least 2 hrs; max = 4 tabs/24 hr PO dicyclomine 10 mg capsule 10 mg PO TID PRN (Reason: abdominal pain) Qty: 30 3RF acetaminophen [Tylenol Extra Strength] 500 mg tablet 1,000 mg PO Q6H PRN (Reason: pain) Qty: 50 0RF fluticasone propionate [Allergy Relief (fluticasone)] 50 mcg/actuation spray,suspension 1 spray intranasal DAILY Qty: 16 0RF Rx Instructions: administer into each nostril Paxlovid 300 mg (150 mg x 2)-100 mg tablets,dose pack See Rx Instructions .ROUTE .COMPLEX Qty: 30 0RF Rx Instructions: take TWO 150 mg tablets of nirmatrelvir with ONE 100 mg tablet of ritonavir twice daily for 5 days acetaminophen 500 mg capsule 500 mg PO Q6H PRN (Reason: fever or pain) Qty: 30 0RF bupropion HCl [Wellbutrin SR] 150 mg tablet sustained-release 12 hr 300 mg PO DAILY Qty: 30 5RF gabapentin 300 mg capsule 300 mg PO QID Qty: 120 5RF rabeprazole 20 mg tablet,delayed release (DR/EC) See Rx Instructions .ROUTE .COMPLEX Qty: 60 12RF Dose Instruction: Take 1 tablet by mouth twice daily Rx Instructions: Take 1 tablet by mouth twice daily doxepin 10 mg capsule 20 mg PO QHS PRN (Reason: anxiety) Qty: 30 2RF <Suresh García MD - Last Filed: 11/20/24 19:10> Follow-up/Referrals: PHYSICIAN NOT ON STAFF,NONSTAFF [Primary Care Provider] - <Suresh García MD - Last Filed: 11/20/24 19:10>
--- NOTE | 2024-11-20 16:43 | ECG_ITS ---
Test Date: 2024-11-20 16:51:08 Measurements Intervals [place] Rate: 82 P: 14 DC: 112 QRS: -10 QRSD: 96 T: 30 QT: 378 QTc: 444 Interpretive Statements SINUS RHYTHM WITH SHORT DC INTERVAL MODERATE T-WAVE ABNORMALITY, CONSIDER ANTERIOR ISCHEMIA [-0.1+ mV T WAVE IN V3/V4] Compared to ECG 11/20/2024 13:03:17 T-wave abnormality still present Possible ischemia still present Electronically Signed On 11-20-2024 21:25:11 PULP MIXER by Silva Cameron M.D.
[2024-11-20] MEDS: KETOROLAC 15 MG/ML VIAL (*BKC) IV PUSH (16:56)
[2024-11-20 19:51] LABS: Troponin I < 0.012 ng/mL (0.000-0.034)
== END 2024-11-20 21:18 | disposition home or self-care (01) ==
PROVIDERS: Emergency Provider Emergency Medicine
DX: K52.9 Noninfective gastroenteritis and colitis, unspecified (principal); K21.9 Gastro-esophageal reflux disease without esophagitis; K58.9 Irritable bowel syndrome, unspecified; M19.90 Unspecified osteoarthritis, unspecified site; F41.9 Anxiety disorder, unspecified; F43.10 Post-traumatic stress disorder, unspecified; F32.A Depression, unspecified; Z85.41 Personal history of malignant neoplasm of cervix uteri; Z90.710 Acquired absence of both cervix and uterus; Z90.49 Acquired absence of other specified parts of digestive tract; Z79.899 Other long term (current) drug therapy; R94.31 Abnormal electrocardiogram [ECG] [EKG]
CPT/HCPCS: 36415; 71046; 74177; 80053; 83690; 84484; 85025; 85610; 85730; 93005; 96374; 96375; 99284; A9270; J1885; J2470; Q9967